=== PATIENT | female | born 1945 | race Caucasian/White ===

== ENCOUNTER → 2023-12-06 17:14 | Outpatient (REF) | payer MEDICARE, SELFPAY | LOC: HWWDC 17:14 | PROVIDERS: ATTENDING PHYSICIAN Obstetrics & Gynecology; FAMILY PHYSICIAN Internal Medicine | DX: Z12.31 Encounter for screening mammogram for malignant neoplasm of breast (principal) | CPT/HCPCS: 77063; 77067 ==

== ENCOUNTER 2024-04-23 14:23 | Outpatient (RCR) | payer MEDICARE, SELFPAY | END 2024-04-23 23:59 | disposition home or self-care (01) | LOC: RPT 14:23 | PROVIDERS: FAMILY PHYSICIAN Internal Medicine | DX: I89.0 Lymphedema, not elsewhere classified (principal); Z73.6 Limitation of activities due to disability | CPT/HCPCS: 97110; 97140; 97161 ==

== ENCOUNTER 2024-05-28 11:57 | Outpatient (RCR) | payer MEDICARE, SELFPAY | END 2024-05-28 23:59 | disposition home or self-care (01) | LOC: RPT 11:57 | PROVIDERS: FAMILY PHYSICIAN Internal Medicine | DX: I89.0 Lymphedema, not elsewhere classified (principal); Z73.6 Limitation of activities due to disability; C06.9 Malignant neoplasm of mouth, unspecified; M62.81 Muscle weakness (generalized); T86.821 Skin graft (allograft) (autograft) failure | CPT/HCPCS: 97110; 97140; 97164 ==

== ENCOUNTER 2024-06-19 13:05 | Outpatient (RCR) | payer MEDICARE, SELFPAY | END 2024-06-19 23:59 | disposition home or self-care (01) | LOC: RPT 13:05 | PROVIDERS: FAMILY PHYSICIAN Internal Medicine | DX: I89.0 Lymphedema, not elsewhere classified (principal); T86.821 Skin graft (allograft) (autograft) failure; C06.9 Malignant neoplasm of mouth, unspecified; M62.81 Muscle weakness (generalized); Z73.6 Limitation of activities due to disability | CPT/HCPCS: 97110; 97140 ==

== ENCOUNTER → 2024-07-13 13:27 | Outpatient (REF) | payer MEDICARE, SELFPAY | LOC: HWRAD 13:27 | PROVIDERS: ATTENDING PHYSICIAN Internal Medicine Endocrinology, Diabetes & Metabolism; FAMILY PHYSICIAN Internal Medicine | DX: Z85.850 Personal history of malignant neoplasm of thyroid (principal) | CPT/HCPCS: 76536 ==

== ENCOUNTER 2024-07-19 11:58 | Outpatient (RCR) | payer MEDICARE, SELFPAY | END 2024-07-19 23:59 | disposition home or self-care (01) | LOC: RPT 11:58 | PROVIDERS: FAMILY PHYSICIAN Internal Medicine | DX: I89.0 Lymphedema, not elsewhere classified (principal); T86.821 Skin graft (allograft) (autograft) failure; C06.9 Malignant neoplasm of mouth, unspecified; M62.81 Muscle weakness (generalized); Z73.6 Limitation of activities due to disability | CPT/HCPCS: 97110; 97140; 97535 ==

== ENCOUNTER → 2024-07-27 10:03 | Outpatient (REF) | payer MEDICARE, SELFPAY | LOC: RST 10:03 | PROVIDERS: ATTENDING PHYSICIAN Internal Medicine | DX: R13.10 Dysphagia, unspecified (principal) | CPT/HCPCS: 74230; 92611 ==

== ENCOUNTER 2024-08-29 11:01 | Outpatient (RCR) | payer OTHER, SELFPAY | END 2024-08-29 23:59 | disposition home or self-care (01) | LOC: RPT 11:01 | PROVIDERS: FAMILY PHYSICIAN Internal Medicine | DX: I89.0 Lymphedema, not elsewhere classified (principal); Z73.6 Limitation of activities due to disability | CPT/HCPCS: 92526; 92610; 97140; 97530 ==

== ENCOUNTER 2024-09-13 10:31 | Outpatient (RCR) | payer OTHER, SELFPAY | END 2024-09-13 13:15 | disposition home or self-care (01) | LOC: RPT 10:31 | PROVIDERS: FAMILY PHYSICIAN Internal Medicine | DX: I89.0 Lymphedema, not elsewhere classified (principal); T86.821 Skin graft (allograft) (autograft) failure; C06.9 Malignant neoplasm of mouth, unspecified; M62.81 Muscle weakness (generalized); Z73.6 Limitation of activities due to disability | CPT/HCPCS: 97140 ==

== ENCOUNTER → 2024-11-28 14:00 | Outpatient (REF) | payer OTHER, SELFPAY | LOC: HWRCS 14:00 | PROVIDERS: ATTENDING PHYSICIAN Internal Medicine Cardiovascular Disease; FAMILY PHYSICIAN Internal Medicine | DX: I35.1 Nonrheumatic aortic (valve) insufficiency (principal); I25.10 Atherosclerotic heart disease of native coronary artery without angina pectoris; M48.00 Spinal stenosis, site unspecified; R07.9 Chest pain, unspecified | CPT/HCPCS: 93306 ==

== ENCOUNTER → 2024-11-30 07:38 | Outpatient (REF) | payer OTHER, SELFPAY | LOC: HWRCS 07:38 | PROVIDERS: ATTENDING PHYSICIAN Internal Medicine Cardiovascular Disease; FAMILY PHYSICIAN Internal Medicine | DX: I25.10 Atherosclerotic heart disease of native coronary artery without angina pectoris (principal); I35.1 Nonrheumatic aortic (valve) insufficiency; R07.9 Chest pain, unspecified | CPT/HCPCS: 78452; 93017; A9500; J2785 ==

== ENCOUNTER → 2025-01-01 09:41 | Outpatient (REF) | payer OTHER, SELFPAY | LOC: HWWDC 09:41 | PROVIDERS: ATTENDING PHYSICIAN Obstetrics & Gynecology; FAMILY PHYSICIAN Internal Medicine | DX: Z12.31 Encounter for screening mammogram for malignant neoplasm of breast (principal) | CPT/HCPCS: 77063; 77067 ==

== ENCOUNTER → 2025-03-29 09:04 | Outpatient (REF) | payer OTHER, SELFPAY | LOC: RAD 09:04 | PROVIDERS: ATTENDING PHYSICIAN Otolaryngology; FAMILY PHYSICIAN Internal Medicine | DX: C03.1 Malignant neoplasm of lower gum (principal) | CPT/HCPCS: 70491; Q9967 ==

== ENCOUNTER → 2025-04-23 09:11 | Outpatient (REF) | payer OTHER, SELFPAY | LOC: RCS 09:11 | PROVIDERS: ATTENDING PHYSICIAN Obstetrics & Gynecology; FAMILY PHYSICIAN Internal Medicine | DX: R00.1 Bradycardia, unspecified (principal) | CPT/HCPCS: 93225; 93226 ==

== ENCOUNTER 2025-05-01 09:05 | Outpatient (RCR) | payer OTHER, SELFPAY ==
[2025-04-30] VITALS (9 sets, daily range): BP systolic 93–154; BP diastolic 46–92
[2025-04-30] MEDS: TYLENOL 650 MG PO (09:32)
[2025-04-30] MEDS: BENADRYL 25 MG PO (09:32)
[2025-04-30] MEDS: NSS 500 IV (09:34)
[2025-04-30] MEDS: GAMMAGARD 200 IV (09:34)
[2025-04-30] MEDS: GAMMAGARD 300 IV ×2 (11:23→12:42)
[2025-05-01] VITALS (11 sets, daily range): BP systolic 108–139; BP diastolic 47–53
[2025-05-01] MEDS: TYLENOL 650 MG PO (09:27)
[2025-05-01] MEDS: BENADRYL 25 MG PO (09:28)
[2025-05-01] MEDS: GAMMAGARD 300 IV ×2 (09:28→11:44)
[2025-05-01] MEDS: NSS 500 IV (09:28)
[2025-05-01] MEDS: GAMMAGARD 200 IV (13:03)
== END 2025-05-01 15:29 | disposition home or self-care (01) ==
LOC: OID 09:05
PROVIDERS: ATTENDING PHYSICIAN Nurse Practitioner Adult Health
DX: G70.00 Myasthenia gravis without (acute) exacerbation (principal); G25.81 Restless legs syndrome
CPT/HCPCS: 96361; 96365; 96366; J1569

== ENCOUNTER 2025-08-16 16:00 | Inpatient (IN) | payer OTHER, SELFPAY ==
[2025-08-16] VITALS (30 sets, daily range): BP systolic 113–167; BP diastolic 46–94; BMI 28.8; BMI 27.8
--- NOTE | 2025-08-16 13:01 | ED.GENMED ---
History of Present Illness
<Iman Guillen RAILROAD BAGG[employer] PORTER - Last Filed: 08/17/25 16:40>
General
Chief Complaint: Weakness
Source: patient and family (Daughter Virgen at bedside)
Exam Limitations: none
Time Seen by Provider: 08/16/25 13:00
Nursing documentation reviewed up to this point in time: agreed with
History of Present Illness
History of Present Illness:
79-year-old female with history of HTN, HLD, GERD, IBS, hypothyroid, oral cancer, myasthenia gravis presents for generalized weakness. She thinks it is a flare of her Myasthenia Gravis.
Diagnosed with MG 12/2023 after symptoms started 07/2023. On Pyridostigmine BR 60 mg TID which was last increased 04/2025 when she had a flare prior to her surgeries for oral cancer
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
02/2025: recurrent mouth CA midline lower gum
04/2025: removal of lesion, reconstructive surgery with skin graft from left forearm followed by 27 radiations treatments starting 07/03/25, last one was last week
She states this general weakness has been progressive all throughout her radiation therapy but much worse in the past 1-2 weeks. She has also had increasing shortness of breath with exertion
Had IVIG infusions on Mon and this week (2 and 4 days ago).
PCP Christiano FLOREZ, aware of her weakness and started her on Prednisone taper (30,30,20,20,10,10) and she had first 30 mg dose today.
She is followed by Dr. Ponce (was Dr. Jane who left), and mostly followed by Bettina Lopez NP neurology.
Past History
<Iman Guillen [employer] PORTER - Last Filed: 08/17/25 16:40>
Past History
ED Past Medical History: Cancer (Oral cancer), GERD, HTN, Hypercholesterolemia, Hypothyroidism, Other (Kidney stones) and Other (Myasthenia gravis)
ED Past Surgical History: Cholecystectomy, Gynecological, Orthopedic and Other (Left thyroid lobectomy)
Social History
Tobacco: Non-smoker
Alcohol: None
Personal: Single
Living: alone (Lives at [facility])
Review of Systems
<Iman Guillen, RAILRO[employer] PORTER - Last Filed: 08/17/25 16:40>
Review of Systems
Allergies reviewed?: Yes
All Other Systems: ROS reviewed and negative except as documented in HPI and ROS
EENT: Reports other (Due to recent oral cancer and radiation, needs pur�ed diet, has to have head raised at least 30 degrees due to aspiration risk)
Phy Exam
<Iman Guillen, [employer]IL[employer] PORTER - Last Filed: 08/17/25 16:40>
Physical Exam
Physical Exam:
GENERAL: No acute distress. A&Ox3.
CONSTITUTIONAL: Afebrile.
EYES: clear, conjunctivae normal
ENMT: limited ROM of jaw due to recent surgery, can speak coherently. Dry mouth with radiation sore on anterior tongue, lower face and neck reddened from radiation treatments. l
RESPIRATORY: Regular respirations, nonlabored, lungs clear.
CARDIOVASCULAR: Regular rate and rhythm, no murmurs, no rubs.
GI: Soft, nontender, normal BS
MUSCULOSKELETAL: Moves with ease. Well perfused. No edema.
SKIN: Warm, dry, pale
PSYCH: Normal mood and affect. Well kept, interactive and appropriate
NEUROLOGIC: Awake, alert and oriented. No focal neurological deficits
Course
<Iman Guillen, RAILRO[employer] PORTER - Last Filed: 08/17/25 16:40>
Orders/Labs/Results
Orders:
Orders
08/16/25 Breakfast
IDDSI 4 - Pureed
At Your Request: Full Participation
08/16/25 13:41
0.9% Sodium Chloride 1000 ml [Nss] 1,000 ml IV BOLUS
08/16/25 13:57
Basic Metabolic Panel Urgent
Complete Blood Count/With Diff Urgent
Free T3 Urgent
Comment: ADD ON
Free T4 Urgent
TSH Reflex To Free T4 Urgent
Comment: ADD ON
08/16/25 14:08
Add On- LAB Urgent
Tests Added?: T3 reflex T4
08/16/25 14:29
NEUROLOGY CONSULT Urgent
Consulting Provider: Higinio Jimenes
Was physician already notified: Yes
Reason for consult: general weakness, hx Myasthenia Gravis
08/16/25 15:26
Urinalysis Reflex To Culture Urgent
Date Specimen was Collected: 08/16/25
Time Specimen was Collected: 15:25
Urine Microscopic Reflex Cult Urgent
Urine Culture Urgent
QUINN Source: U
Specimen Description:
Date Specimen was Collected: 08/16/25
Time Specimen was Collected: 15:25
08/16/25 15:34
Admit/Transfer Patient As Directed
Co-Sign Provider:
Level of Care: Inpatient admission
Assign to:: ICU
Physician / Group: marilou
Diagnosis: Myasthenia Gravis exacerbation
Reason for Hospitalization: Myasthenia Gravis exacerbation
Expected length of stay greater than two midnights?: Yes
ELOS- Estimated Length of Stay in days: 3
I certify the patient meets the requirements for IP care: Yes
08/16/25 15:35
PRN Pain Medication Management As Directed
May give lesser potent ordered pain med per pt: Yes
preference::
Protocol:: Medication orders for pain may be administered in a
manner that supports deferring to patient preference
when the pt is:
- Requesting an ordered lesser potent pain medication.
Least to most potent pain medications are defined
as: acetaminophen < NSAID < tramadol < opioids
(morphine, oxycodone, hydromorphone).
- Requesting a lesser dose of the same medication IF
ORDERED.
- Requesting a less intrusive route of administration
if both routes are prescribed by the provider (PO <
IV).
08/16/25 15:36
Code Status As Directed
Resuscitation Status: Full Code
08/16/25 16:37
Acetaminophen [Tylenol] 650 mg PO Q4HPRN PRN
Bisacodyl [Dulcolax] 10 mg RECTAL [id number] PRN
Docusate W/Senna [Senokot-S] 1 tablet PO BIDPRN PRN
Polyethylene Glycol Powder [Miralax] 17 grams PO DAILYPRN PRN
Pyridostigmine [Mestinon] 60 mg PO TID
Pft Nif [RESP] Q4H
08/16/25 16:37
Librarian Assistant Consult Routine
Consulting Provider: Maite Wise
Was physician already notified: Yes
Activity As Directed
Activity Level: As Tolerated
Vital Signs As Directed
Frequency: Per unit guidelines
Ot Eval And Treat Routine
Pt Eval And Treat Routine
Activity Level: As Tolerated
DX Deep Vein Thrombosis Video Routine
08/16/25 18:00
Enoxaparin Sodium [Lovenox] 40 mg SC QPM
08/16/25 20:00
Vit C/Vit E/Lutein/Min/Tacoma-3 [Ocuvite Softgel] 1 cap PO BID
08/16/25 20:37
Pft Nif [RESP] Q4H
08/17/25 00:37
Pft Nif [RESP] Q4H
08/17/25 06:00
Levothyroxine [Synthroid] 112 mcg PO DAILY@0600
08/17/25 08:00
Lactobac/Bifidobac [Visbiome] 1 cap PO DAILY
Pantoprazole [Protonix] 40 mg PO DAILY
Abnormal Lab Results
08/16/25 08/16/25
13:57 15:26
WBC 3.8 L 10^3/uL
(4.8-10.8)
RBC 3.89 L 10^6/uL
(4.20-5.40)
Hgb 10.5 L g/dL
(12.0-16.0)
Hct 33.9 L %
(37.0-47.0)
MCHC 31.0 L g/dL
(33.0-37.0)
MPV 11.6 H fL
(7.4-10.4)
Absolute Lymphs (auto) 0.2 L 10^3/uL
(1.2-3.4)
Neutrophils % 91.4 H %
(42.2-75.2)
Lymphocytes % 4.9 L %
(20.5-51.1)
Chloride 111 H mmol/L
(98-107)
BUN 19 H mg/dl
(7-17)
Glucose 110 H mg/dl
(70-99)
TSH (Reflex) 0.09 L uIU/ml
(0.47-4.68)
Free T4 2.74 H ng/dl
(0.78-2.19)
Urine Ketones 3+ A
(Negative)
Ur Occult Blood Reflex 1+ A
(Negative)
Urine Bilirubin 1+ A
(Negative)
Leukocyte Esterase Rfl 1+ A
(Negative)
Urine RBC 7-10 A /HPF
(0-2)
Urine Bacteria (Reflex) Moderate A
(Negative)
Urine Albumin (Reflex) 2+ A
(Neg - Trace)
08/16/25 13:57
08/16/25 13:57
Vital Signs
Initial and Last Documented VS:
Initial Vital Signs
Temp Pulse Resp BP Pulse Ox
97.7 F 65 18 167/94 99
08/16/25 11:32 08/16/25 11:32 08/16/25 11:32 08/16/25 11:32 08/16/25 11:32
Last Documented Vital Signs
Temp Pulse Resp BP Pulse Ox
98 F 53 14 110/74 96
08/17/25 15:26 08/17/25 16:00 08/17/25 16:00 08/17/25 16:00 08/17/25 16:00
Commercial Print Salesman consulted with Physician
Commercial Print Salesman consulted with physician?: Yes
Name of Physician Consulted: Omid
<Mert Mitchell, DO - Last Filed: 08/16/25 14:16>
Orders/Labs/Results
Orders:
Orders
08/16/25 Breakfast
IDDSI 4 - Pureed
At Your Request: Full Participation
08/16/25 13:41
0.9% Sodium Chloride 1000 ml [Nss] 1,000 ml IV BOLUS
08/16/25 13:57
Basic Metabolic Panel Urgent
Complete Blood Count/With Diff Urgent
Free T3 Urgent
Comment: ADD ON
Free T4 Urgent
TSH Reflex To Free T4 Urgent
Comment: ADD ON
08/16/25 14:08
Add On- LAB Urgent
Tests Added?: T3 reflex T4
08/16/25 14:29
NEUROLOGY CONSULT Urgent
Consulting Provider: Higinio Jimenes
Was physician already notified: Yes
Reason for consult: general weakness, hx Myasthenia Gravis
08/16/25 15:26
Urinalysis Reflex To Culture Urgent
Date Specimen was Collected: 08/16/25
Time Specimen was Collected: 15:25
Urine Microscopic Reflex Cult Urgent
Urine Culture Urgent
QUINN Source: U
Specimen Description:
Date Specimen was Collected: 08/16/25
Time Specimen was Collected: 15:25
08/16/25 15:34
Admit/Transfer Patient As Directed
Co-Sign Provider:
Level of Care: Inpatient admission
Assign to:: ICU
Physician / Group: marilou
Diagnosis: Myasthenia Gravis exacerbation
Reason for Hospitalization: Myasthenia Gravis exacerbation
Expected length of stay greater than two midnights?: Yes
ELOS- Estimated Length of Stay in days: 3
I certify the patient meets the requirements for IP care: Yes
08/16/25 15:35
PRN Pain Medication Management As Directed
May give lesser potent ordered pain med per pt: Yes
preference::
Protocol:: Medication orders for pain may be administered in a
manner that supports deferring to patient preference
when the pt is:
- Requesting an ordered lesser potent pain medication.
Least to most potent pain medications are defined
as: acetaminophen < NSAID < tramadol < opioids
(morphine, oxycodone, hydromorphone).
- Requesting a lesser dose of the same medication IF
ORDERED.
- Requesting a less intrusive route of administration
if both routes are prescribed by the provider (PO <
IV).
08/16/25 15:36
Code Status As Directed
Resuscitation Status: Full Code
08/16/25 16:37
Acetaminophen [Tylenol] 650 mg PO Q4HPRN PRN
Bisacodyl [Dulcolax] 10 mg RECTAL [id number] PRN
Docusate W/Senna [Senokot-S] 1 tablet PO BIDPRN PRN
Polyethylene Glycol Powder [Miralax] 17 grams PO DAILYPRN PRN
Pyridostigmine [Mestinon] 60 mg PO TID
Pft Nif [RESP] Q4H
08/16/25 16:37
Librarian Assistant Consult Routine
Consulting Provider: Maite Wise
Was physician already notified: Yes
Activity As Directed
Activity Level: As Tolerated
Vital Signs As Directed
Frequency: Per unit guidelines
Ot Eval And Treat Routine
Pt Eval And Treat Routine
Activity Level: As Tolerated
DX Deep Vein Thrombosis Video Routine
08/16/25 18:00
Enoxaparin Sodium [Lovenox] 40 mg SC QPM
08/16/25 20:00
Vit C/Vit E/Lutein/Min/Tacoma-3 [Ocuvite Softgel] 1 cap PO BID
08/16/25 20:37
Pft Nif [RESP] Q4H
08/17/25 00:37
Pft Nif [RESP] Q4H
08/17/25 06:00
Levothyroxine [Synthroid] 112 mcg PO DAILY@0600
08/17/25 08:00
Lactobac/Bifidobac [Visbiome] 1 cap PO DAILY
Pantoprazole [Protonix] 40 mg PO DAILY
Abnormal Lab Results
08/16/25 08/16/25
13:57 15:26
WBC 3.8 L 10^3/uL
(4.8-10.8)
RBC 3.89 L 10^6/uL
(4.20-5.40)
Hgb 10.5 L g/dL
(12.0-16.0)
Hct 33.9 L %
(37.0-47.0)
MCHC 31.0 L g/dL
(33.0-37.0)
MPV 11.6 H fL
(7.4-10.4)
Absolute Lymphs (auto) 0.2 L 10^3/uL
(1.2-3.4)
Neutrophils % 91.4 H %
(42.2-75.2)
Lymphocytes % 4.9 L %
(20.5-51.1)
Chloride 111 H mmol/L
(98-107)
BUN 19 H mg/dl
(7-17)
Glucose 110 H mg/dl
(70-99)
TSH (Reflex) 0.09 L uIU/ml
(0.47-4.68)
Free T4 2.74 H ng/dl
(0.78-2.19)
Urine Ketones 3+ A
(Negative)
Ur Occult Blood Reflex 1+ A
(Negative)
Urine Bilirubin 1+ A
(Negative)
Leukocyte Esterase Rfl 1+ A
(Negative)
Urine RBC 7-10 A /HPF
(0-2)
Urine Bacteria (Reflex) Moderate A
(Negative)
Urine Albumin (Reflex) 2+ A
(Neg - Trace)
08/16/25 13:57
08/16/25 13:57
Vital Signs
Initial and Last Documented VS:
Initial Vital Signs
Temp Pulse Resp BP Pulse Ox
97.7 F 65 18 167/94 99
08/16/25 11:32 08/16/25 11:32 08/16/25 11:32 08/16/25 11:32 08/16/25 11:32
Last Documented Vital Signs
Temp Pulse Resp BP Pulse Ox
98 F 53 14 110/74 96
08/17/25 15:26 08/17/25 16:00 08/17/25 16:00 08/17/25 16:00 08/17/25 16:00
<Iman Guillen, RAILROAD BAGGAGE PORTER - Last Filed: 08/17/25 16:40>
MDM/Problems Addressed
MDM/Problems Addressed:
79-year-old female with history of HTN, HLD, GERD, IBS, hypothyroid, oral cancer, myasthenia gravis presents for generalized weakness. She thinks it is a flare of her Myasthenia Gravis.
Diagnosed with MG 12/2023 after symptoms started 07/2023. On Pyridostigmine BR 60 mg TID which was last increased 04/2025 when she had a flare prior to her surgeries for oral cancer
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
02/2025: recurrent mouth CA midline lower gum
04/2025: removal of lesion, reconstructive surgery with skin graft from left forearm followed by 27 radiations treatments starting 07/03/25, last one was last week
She states this general weakness has been progressive all throughout her radiation therapy but much worse in the past 1-2 weeks. She has also had increasing shortness of breath with exertion
Had IVIG infusions on Mon and Tu this week (2 and 4 days ago).
PCP Christiano FLOREZ, aware of her weakness and started her on Prednisone taper (30,30,20,20,10,10) and she had first 30 mg dose today.
She is followed by Dr. Ponce (was Dr. Jane who left), and mostly followed by Bettina Lopez NP neurology.
CBC: Mild anemia otherwise no clinically significant abnormality
CMP: No clinically significant abnormality
2:45 PM:
Neurology in, wants patient mid to ICU
Discussed transfer to [place] but pt refusing.
Ordered Resp NIF
Hospitalist and notified of admission
<Iman Guillen RAILROAD BAGGAGE PORTER - Last Filed: 08/17/25 16:40>
*Pulse Oximetry
SaO2: 99
Patient hypoxic: no
*Critical Care Note
Total Time (30-74mins, 75-104mins- exclusive of procedures): Not Applicable
ED Attending Note
<Iman Guillen RAILROAD BAGGAGE PORTER - Last Filed: 08/17/25 16:40>
-
Portions of this chart may have been created with voice recognition software.� Occasional wrong word or��sound alike� substitutions may have occurred due to the inherent limitations of voice recognition software.
<Mert Mitchell DO - Last Filed: 08/16/25 14:16>
ED Attending Note
Patient seen and examined by attending physician: Yes
I performed the substantive portion of visit, reviewed & personally made and approve the management plan that is documented in note by myself or JOHN.: Yes
Discharge Plan
Departure
Patient Disposition: Admit
Date of Disposition: 08/16/25
Time of Disposition: 15:00
Admit to: ICU
Presentation/result/management discussed w/ accepting MD/DO: Hospitalist
Condition: Fair
Discharge Problem:
General weakness, Myasthenia gravis, History of cancer of mouth
Interventions
Interventions:
*Risk Screen - Suicide Last Done: 08/16/25 11:38
*General Assessment Last Done: 08/16/25 11:38
*Neglect/Abuse Screening Last Done: 08/16/25 11:38
*ED- Fall Risk Assessment Last Done: 08/16/25 16:25
*ED COVID-19 Vaccine History Last Done: 08/16/25 11:38
*ED Influenza Vaccine History Last Done: 08/16/25 11:38
*Nursing Disposition Last Done: 08/16/25 16:28
ED- Cardiac Assessment Last Done: 08/16/25 14:13
ED- Neurological Assessment Last Done: 08/16/25 14:13
ED- Pulmonary Assessment Last Done: 08/16/25 14:13
Discharge Date and Time
Discharge Date/Time: 08/16/25 16:28
[2025-08-16 14:10] LABS: Hematocrit 33.9 % (37.0-47.0); Hemoglobin 10.5 g/dL (12.0-16.0); Mean Corp Hgb Conc. 31.0 g/dL (33.0-37.0); Mean Corpuscular Volume 87.1 fL (81.0-99.0); Nucleated Red Blood Cells % 0 %; Platelet Count 231 10^3/uL (130-400); Red Cell Dist. Width 14.5 % (11.5-14.5)
[2025-08-16 14:43] LABS: Blood Urea Nitrogen 19 mg/dl (7-17); Calcium 9.3 mg/dl (8.4-10.2); Carbon Dioxide 24 mmol/L (22-30); Chloride 111 mmol/L (98-107); Estimated Creatinine Clearance 57 ml/min; Glucose 110 mg/dl (70-99); Sodium 141 mmol/L (135-145); eGFR > 60.00
--- NOTE | 2025-08-16 15:04 | HPS.HSE ---
Addendum entered and electronically signed by Fadi Elkins MD 08/16/25 16:03:
This is an addendum to H&P written by Erika Alvarado on 08/16/2025. �Patient seen and examined independently with SUPERVISOR [employer].
79-year-old female past medical history of myasthenia gravis on IVIG started this week and chronic pyridostigmine, hypertension, hyperlipidemia, IBS, hypothyroidism, recurrent squamous cell oral cancer status post radiation and priormandibulectomy
with bone graft from right fibula and reconstructive surgery, presenting with extreme lower extremity weakness and inability to ambulate for 1 week and shortness of breath with exertion.
Tongue is sore from radiation. On pureed diet.
Started on prednisone yesterday.
Vital signs unremarkable. �Labs unremarkable apart from leukopenia of 3.8, anemia of 10.5.
Patient with myasthenia gravis flare already receiving IVIG earlier this week. �On pyridostigmine and prednisone. �Neurology consulted. �Monitoring ICU. �Check NIF every 4 hours.
Original Note:
Family Physician
-
Family Physician: Rodney Moreno
Chief Complaint
-
generalized weakness
History of Present Illness
79-year-old female with history of HTN, HLD, GERD, IBS, hypothyroid, oral cancer, myasthenia gravis presents for generalized weakness. progressively worsening weakness for past one week. she is not able to walk without help. she is also sob with
exertion. denied cough, fever, chills, chest pain. denied SOLIZ, dizzy or syncope.denied abdominal pain,n,v,d. denied dysuria or hematuria. she Had IVIG infusions on Tue and this week. she was also started on steroids, she took her first dose
today. patient also stated poor appetite as her tongues are sore from recent radiation. she was evaluated by oncology on , who stated no active infection.
PFT NIF was performed in the ER. patient was evaluated by neurology. admitting for further management.
Medical History
Past Medical History
Past Medical History: Reports Other
Additional Past Medical History:
Obstructive sleep apnea, hypercholesterolemia, hyperlipidemia, coronary artery disease, hypothyroidism, GERD, hypothyroidism, myasthenia gravis, hypertension, aortic regurgitation, oral cavity carcinoma, Osteoarthritis, benign breast mass, irritable
bowel disease, squamous cell carcinoma, left eye macular degeneration
Past Surgical History: Reports Other
Additional Past Surgical History:
Hysterectomy, cholecystectomy, thyroidectomy, total knee replacement, oral surgery, left segmental mandibulectomy
Social History
Tobacco: Non-smoker
Alcohol: None
Drug: None
Living: With Family
Family History
Family History: Not pertinent
Allergies / Home Medications
Allergies reflects when Allergies were last updated in [facility].
Home Medications with original date entered in [facility]
Allergy/Medication List:
Allergies
Allergy/AdvReac Type Severity Reaction Status Date / Time
levofloxacin (From Levaquin) Allergy vaginal Verified 08/16/25 11:38
infection
succinylcholine Allergy Unknown Verified 08/16/25 11:38
Home Medications
atenolol 25 mg tablet 25 mg PO DAILY 06/23/09
vakzftlnlsge-zywiejnt-lpouoj tablet (Centrum Silver tablet) 1 tab PO DAILY 06/23/09
acetaminophen 650 mg tablet,extended release (Tylenol Arthritis) 1,300 mg PO PRN PRN pain 06/24/09
Nexium 1 tab PO DAILY 04/30/25
hydrochlorothiazide 1 tab PO DAILY 04/30/25
levothyroxine 112 mcg tablet (Synthroid) 112 mcg PO DAILY 04/30/25
pravastatin 1 tab PO DAILY 04/30/25
pyridostigmine bromide 60 mg tablet (Mestinon) 60 mg PO TID 04/30/25
vitamins A,C,J-ubnl-qflrmu 2,148 mcg-113 mg-45 mg-17.4 mg tablet (PreserVision AREDS) 1 tab PO BID 04/30/25
Review of Systems
-
Constitutional: Reports No Symptoms
EENT: Reports No Symptoms
Respiratory: Reports No Symptoms
Cardiac: Reports No Symptoms
Abdomen/GI: Reports No Symptoms
: Reports No Symptoms
Musculoskeletal: Reports No Symptoms
Skin: Reports No Symptoms
Neurological: Reports Weakness
Endocrine: Reports No Symptoms
Hematologic/Lymphatic: Reports No Symptoms
Psych: Reports No Symptoms
Physical Exam
Vital Signs
Vital Signs
Temp Pulse Resp BP Pulse Ox
97.7 F 67 17 113/59 94
08/16/25 11:32 08/16/25 14:00 08/16/25 14:00 08/16/25 14:00 08/16/25 14:00
Physical Exam
General: Well Developed, Well Nourished and No Apparent Distress
HEENT: NormoCephalic, Moist mucous membranes and Atraumatic
Respiratory: Clear
Cardiac: S1/S2 and Regular Rhythm; No Murmur or Rub
GI: Soft, Non Tender, Non Distended and Normal Bowel Sounds; No Organomegaly
Rectal: Deferred by Provider
Musculoskeletal: No Clubbing, No Cyanosis and No Edema
Skin: Rash and Other (tongue soreness)
Neuro: Nonfocal/grossly intact
Laboratory Results
-
08/16/25 13:57
08/16/25 13:57
Laboratory Results
Total Bilirubin Cancelled 08/16/25 13:57
AST Cancelled 08/16/25 13:57
ALT Cancelled 08/16/25 13:57
Alkaline Phosphatase Cancelled 08/16/25 13:57
Data Reviewed
-
Lab Data: Labs Reviewed by me
Impression/Plan
-
# extreme weakness/short of breath concern of for exacerbation of myasthenia gravis
- On NIF every 4 hours
- neurology following patient
-Mestinon continued
- PT/OT consulted
#Leukopenia/anemia likely from recent radiation
-ctm
#hxt of squamous cell oral cancer
#recurrent mouth CA midline lower gum, removal of lesion, reconstructive surgery with skin graft from left forearm
-s/p L mandibulectomy with bone graft from R fibula
-follows [facility] oncology
#tongue sore/lesions
-ctm
#GERD
-PPI continued
#hypothyroidism
-levothyroxine continued
#DVT prophylaxis
-Lovenox
#CODE status
-full code
[2025-08-16] MEDS: NSS 1000 IV (15:08)
[2025-08-16 15:34] LABS: Free T3 3.20 pg/ml (2.77-5.27)
--- NOTE | 2025-08-16 16:04 | CON.NEURO4 ---
Addendum entered and electronically signed by Higinio Jimenes MD 08/16/25 20:23:
This addendum is for the patient Debi Chiang, who is a 79 years old female and her date of is 1945.
I have seen and examined the patient on 08/16/2025. I have discussed the patient's assessment and the management plan with nurse practitioner Bettina Lopez. I agree with the assessment and plan of the nurse practitioner Bettina Lopez. Given below
is my assessment and plan.
The patient is 79 years old female with a past medical history of myasthenia gravis, hypertension, hyperlipidemia, oral cancer status post surgery and now with ongoing radiation therapy, who presented to the hospital with increased weakness. The
patient noted shortness of breath. The patient follows up with neurology for myasthenia gravis and has recently received IVIG treatment about 4 days ago. The patient says that the IVIG treatment helped her somewhat but she is still has been
progressively getting weaker. Is also on Mestinon 60 mg 3 times daily. The patient was also started on prednisone 30 mg by her PCP and she took the first dose before coming to the ER.
On neurologic examination, the patient is alert and oriented x 3, speech is clear, the cranial nerves II to XII are grossly intact, the sensations are grossly intact bilaterally and her motor strength is about 4/55 bilaterally in the upper and lower
extremities.
The plan is to admit the patient to the hospital in ICU and follow NIF and vital capacity every 6 hours. The plan is to continue with Mestinon and prednisone. IVIG treatment has been ordered for today. At this time the patient is able to maintain
her airway.
Discussed with Dr. Wise.
Will follow.
Original Note:
Consultation - Neurology 4
-
CONSULTING PHYSICIAN: Dr. Higinio Jimenes
REFERRING PHYSICIAN: ABEL Edward
DICTATED BY: ABEL West
DATE/TIME OF REQUEST: 08/16/2025
DATE/TIME OF CONSULTATION: 08/16/2025
Reason for Consultation:
History of Present Illness:
This is a 79-year-old female patient with past medical history of myasthenia, hypertension, hyperlipidemia, GERD, IBS and oral cancer status postsurgery x 2 now iwth ongoing radiation at [facility] who presented to the hospital this afternoon with
increased weakness. She reports today she was unable to walk without assistance. She noted shortness of breath with minimal exertion. She had difficulty getting dressed. On 05/06/2025 she had anterior floor of mouth resection marginal
mandibulectomy. She has now been receiving radiation, received 27 treatments thus far. First mandible surgery was 07/2023. Initial dx of MG was December 2023. She has followed up with neurology for myasthenia and has recently been receiving IVIG
given weakness in setting of second surgery and radiation, last doses this past Tuesday and Tuesday. She has found that this has been somewhat helpful but she still has been progressively getting weaker. She has also been maintained on Mestinon 60
mg TID. She did see her PCP for follow up and they started her on prednisone 30 mg for increased weakness and she took her first dose of that before coming to the ER. She does admit that she is not able to eat or drink well since surgery. Recently
her intake has been worse with mouth sores and increased pain d/t radiation.
Past History-
ED Past Medical History: Cancer (Oral cancer), GERD, HTN, Hypercholesterolemia, Hypothyroidism, Other (Kidney stones) and Other (Myasthenia gravis)
ED Past Surgical History: Cholecystectomy, Gynecological, Orthopedic and Other (Left thyroid lobectomy), L mandibulectomy with bone graft from R fibula 07/2023, anterior floor of mouth resection marginal mandibulectomy, left forearm skin graft 04/2025
Social History-
Tobacco: Non-smoker
Alcohol: None
Personal: Single
Living: alone (Lives at [facility])
Allergies: see below
Home Medications: see below
Review of Symptoms:
Patient denies any fever, headache, chest pain, shortness of breath at rest, or symptoms. She has had mouth pain and difficulty eating and drinking.
�
Vital Signs: see below
Physical Exam:
The patient is afebrile, heart sounds S1 and S2 are regular, and chest is clear to auscultation bilaterally.
Neurologic Examination:
The patient is awake, alert and oriented x 3. She is able to follow commands and answer questions appropriately. There is no aphasia moderate dysarthria. On cranial nerve assessment, pupils are 3 mm bilateral, round and reactive to light and
accommodation. Visual lindquist are full. Extraocular movements are intact. Facial sensations are intact, surgical changes to mouth causing asymmetry. Hearing is intact bilaterally to normal conversation volume. Tongue palate and uvula are midline.
Sternocleidomastoid strengths are full bilaterally. Motor strengths are 5/5 bilateral upper and lower extremities on medical research [place] scale. There is no drift or involuntary movement noted. Sensations of light touch intact. There was no
extinction noted on double simultaneous stimulation. Coordination is intact by finger to nose bilaterally.
Lab Results: see below
Neuro Imaging: none to review
Impression:
DEBI CHIANG is a 79 year old F who has presented to the hospital with generalized weakness in setting of MG and recent surgery for mouth cancer followed by radiation. Weakness is likely multifactorial, but now likely is in MG flare.
Recommendations:
-should admit to ICU given risk of decline
-Give one time dose of IVIG 45 gm as ordered
-continue Mestinon 60 mg TID, has not been able to tolerate higher doses in the past d/t diarrhea
-continue prednisone 30mg daily for now
-encourage PO intake
-eventual PT/OT and speech evaluations
-continue NIF and vital capacity testing Q4h
-discussed possible need for transfer
Discussed patient care with neurologist Dr. Jimenes, emergency room staff ABEL Edward and Dr. Mitchell, patient and daughter
Vital Signs / Labs
-
Vital Signs and Labs:
Temp Pulse Resp BP Pulse Ox
97.7 F 65 15 145/68 96
08/16/25 11:32 08/16/25 15:00 08/16/25 15:00 08/16/25 15:00 08/16/25 15:00
08/16/25 13:57
08/16/25 13:57
08/16/25
13:57
WBC 3.8 L
RBC 3.89 L
Hgb 10.5 L
Hct 33.9 L
MCHC 31.0 L
MPV 11.6 H
Absolute Lymphs (auto) 0.2 L
Neutrophils % 91.4 H
Lymphocytes % 4.9 L
Chloride 111 H
BUN 19 H
Glucose 110 H
TSH (Reflex) 0.09 L
Medication and Allergies
Home Medications
Home Medications
�Medication �Instructions �Recorded
ktouohrvhvos-nxxnjveu-parxts 1 tab PO DAILY 06/23/09
tablet (Centrum Silver tablet)
levothyroxine 112 mcg tablet 112 mcg PO DAILY 04/30/25
(Synthroid)
pyridostigmine bromide 60 mg 60 mg PO TID 04/30/25
tablet (Mestinon)
vitamins A,C,K-aszz-mvrgav 2,148 1 tab PO BID 04/30/25
mcg-113 mg-45 mg-17.4 mg tablet
(PreserVision AREDS)
esomeprazole magnesium 20 mg 20 mg PO DAILY 08/16/25
capsule,delayed release (Nexium)
immune glob,gamma (IgG) 10 1 ml IV MONTHLY MG 08/16/25
%-gly-IgA over 50 mcg/mL injection
solution (Gammagard Liquid)
lactobacillus combination no.4 3 3,000 mmu cells PO DAILY 08/16/25
billion cell capsule (Probiotic)
lorazepam 0.5 mg tablet 0.5 mg PO DAILYPRN PRN prior to 08/16/25
radiation
prednisone 10 mg tablet 30 mg PO .TAPER 08/16/25
Allergies
Allergies
Allergy/AdvReac Type Severity Reaction Status Date / Time
levofloxacin (From Levaquin) Allergy vaginal Verified 08/16/25 11:38
infection
succinylcholine Allergy Unknown Verified 08/16/25 11:38
--- NOTE | 2025-08-16 16:04 | CON.INTV ---
Consultation
Consultation Request
Date/Time Consultation Requested: 08/16/2025
Date/Time Consultation Performed: 08/16/2025
Medical History
-
Chief Complaint: Weakness
History of Present Illness:
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 She follows up with [facility] and currently actively receiving radiation treatment.
Patient reports that over the last few days he has been having increasing weakness and has not been able to walk without assistance. She carries a known diagnosis of myasthenia gravis and chronically is on Mestinon. In view of increased weakness
she was started on IVIG and she has received 2 doses as outpatient, last dose was 3 days ago. In addition she was recently started on prednisone but in view of increasing symptoms she presented to the emergency room. In the emergency room she is
hemodynamically stable, protecting airways well. No evidence of drooling, respiratory compromise. Patient has a strong cough. She was evaluated by neurology service and is currently being admitted to the ICU for close monitoring of her
respiratory status. Sniff testing was attempted but patient not able to make a tight seal around the device. Activities Therapist consultation was requested for further input.
Past Medical History
Past Medical History: Reports Other
Additional Past Medical History:
Obstructive sleep apnea, hypercholesterolemia, hyperlipidemia, coronary artery disease, hypothyroidism, GERD, hypothyroidism, myasthenia gravis, hypertension, aortic regurgitation, oral cavity carcinoma, Osteoarthritis, benign breast mass, irritable
bowel disease, squamous cell carcinoma, left eye macular degeneration
Past Surgical History: Reports Other
Additional Past Surgical History:
Hysterectomy, cholecystectomy, thyroidectomy, total knee replacement, oral surgery, left segmental mandibulectomy
Social History
Tobacco: Non-smoker
Alcohol: None
Drug: None
Living: With Family
Family History
Family History: Not pertinent
Allergies / Home Medications
Allergies / Home Medications
Allergies
Allergy/AdvReac Type Severity Reaction Status Date / Time
levofloxacin (From Levaquin) Allergy vaginal Verified 08/16/25 11:38
infection
succinylcholine Allergy Unknown Verified 08/16/25 11:38
Home Medications
�Medication �Instructions �Recorded �Confirmed �Last Taken �Type
rehkoljmtiea-onohgljl-mfyugr 1 tab PO DAILY 06/23/09 08/16/25 05/01/25 History
tablet (Centrum Silver tablet)
levothyroxine 112 mcg tablet 112 mcg PO DAILY 04/30/25 08/16/25 08/16/25 History
(Synthroid)
pyridostigmine bromide 60 mg 60 mg PO TID 04/30/25 08/16/25 08/16/25 History
tablet (Mestinon)
vitamins A,C,K-vloi-uqrhcq 2,148 1 tab PO BID 04/30/25 08/16/25 05/01/25 History
mcg-113 mg-45 mg-17.4 mg tablet
(PreserVision AREDS)
esomeprazole magnesium 20 mg 20 mg PO DAILY 08/16/25 08/16/25 Unknown History
capsule,delayed release (Nexium)
immune glob,gamma (IgG) 10 1 ml IV MONTHLY MG 08/16/25 08/16/25 08/13/25 History
%-gly-IgA over 50 mcg/mL injection
solution (Gammagard Liquid)
lactobacillus combination no.4 3 3,000 mmu cells PO DAILY 08/16/25 08/16/25 Unknown History
billion cell capsule (Probiotic)
lorazepam 0.5 mg tablet 0.5 mg PO DAILYPRN PRN prior to 08/16/25 08/16/25 Unknown History
radiation
prednisone 10 mg tablet 30 mg PO .TAPER 08/16/25 08/16/25 08/16/25 History
Review of Systems
-
Hematologic/Lymphatic: Other (All 14 systems reviewed and negative except as stated above in the history of present illness.)
Vitals / Labs / Diagnostic Testing
Vital Signs
Temp Pulse Resp BP Pulse Ox
97.7 F 65 15 145/68 96
08/16/25 11:32 08/16/25 15:00 08/16/25 15:00 08/16/25 15:00 08/16/25 15:00
Lab Data
08/16/25 13:57
08/16/25 13:57
Diagnostic Testing:
Physical Exam
-
HEENT: Other (Radiation related skin changes noted, partial mouth opening. No stridor on exam. )
Cardiovascular: S1/S2
Respiratory: Clear
GI: Non Distended
Neurology: Alert
Skin: Warm
General: Comfortable
Assessment
-
#1. Myasthenia gravis with worsening weakness
- Patient chronically has been on pyridostigmine and recently started on prednisone in addition to IVIG infusion
- Most recent IVIG infusion was 3 days prior to admission. Additional IVIg ordered. Continue Prednisone 30 mg PO daily along with Mestinon. Neurology service on case.
- Patient at risk of respiratory failure. Reviewed ED records, patient declined transfer to tertiary facility like [facility]
- Monitor closely in the ICU, NIF testing attempted but patient unable to make oral seal
- With prior surgery for oral cancer as well as neck radiation, patient has a high risk airway in the event that an intubation is needed. Updated daughter at bedside regarding risk of tracheostomy
- Check VBG to evaluate for any CO2 retention, serial VBG in AM
- Low threshold to initiate noninvasive positive pressure ventilation. Currently seems to have strong cough and stable from respiratory stand point. No drooling or stridor noted.
#2/ H/o MUKUL
- Patient not using any CPAP or BIPAP since 5 years now, and does not want to use PAP therapy
Other medical diagnoses:
- Hypertension, hyperlipidemia
- Hypothyroidism
- Chronic GERD
- History of squamous cell carcinoma, oral cavity, status post surgery, reconstruction and radiation. Magic mouth wash for oral discomfort
Critical Care time [65] mins -- The patient is admitted for acute critical illness for the treatment of vital organ failure and/or prevention of further life-threatening conditions. Total care includes time spent in review of history, physical exam,
medications, hemodynamic/ventilator parameters, laboratory data, imaging and discussion with house staff, pharmacy, respiratory therapy, scarfer, and nursing.
Data:
PET-CT 03/2025: 1. RECURRENT SQUAMOUS CELL CARCINOMA in the MIDLINE ANTERIOR FLOOR of the MOUTH).
2. No evidence for FDG avid metastatic disease.
3. Previous left mandibular resection, mandibular reconstruction, and left-sided neck dissection.
CT Neck 02/2025: 1. No CT evidence for enhancing soft tissue mass to suggest recurrent cancer. Mild edema along the anterior margin of the mandible. Partial left mandibular resection and reconstruction with surrounding soft tissue resection in the
left side of the floor of the mouth and left gripper installer space since the prior exam performed 07/18/2023.
2. No CT evidence for metastatic cervical lymphadenopathy.
3. Previous total thyroidectomy.
4. 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
5. 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
6. Mild pulmonary arterial hypertension.
Lexiscan 10/2024: Lexiscan nuclear stress test. No chest pain. No EKG changes specific for ischemia.
No perfusion evidence of ischemia or infarction.
Systolic function is normal. The ejection fraction is 56%.
Stress Risk is moderate due to use of pharmacologic agent.
ECHO 10/2024: Normal biventricular size and systolic function without regional wall motion
abnormality. Estimated LVEF 65-70%.
Mild aortic regurgitation.
[2025-08-16 16:15] LABS: Urine Character Slightly Cloudy (Clear)
[2025-08-16 16:50] LABS: Glucose - Point of Care 131 mg/dl (70-99)
[2025-08-16 17:09] LABS: Venous Blood Gas B.E. -1.6 mmol/L (-4 to +4); Venous Blood Gas O2 Sat % 99.2 %
[2025-08-16 17:14] LABS: Urine Urothelial Cell 0-2 /LPF (FEW)
[2025-08-16 17:19] LABS: INR 1.03; PT 13.8 Sec (11.4-14.6)
[2025-08-16 17:20] LABS: APTT 28.3 Sec (23.4-35.0)
[2025-08-16 17:21] LABS: Blood Urea Nitrogen 18 mg/dl (7-17); Calcium 8.7 mg/dl (8.4-10.2); Carbon Dioxide 22 mmol/L (22-30); Chloride 115 mmol/L (98-107); Estimated Creatinine Clearance 56 ml/min; Glucose 117 mg/dl (70-99); Potassium 3.5 mmol/L (3.5-5.1); Sodium 141 mmol/L (135-145); eGFR > 60.00
--- NOTE | 2025-08-16 17:21 | RESPNOTE ---
NIF/VC attempted multiple times with patient,difficult to get seal on mouth due to radiation treatments. Multiple attempts made with different mouth piece and techniques. Best efforts recording.
[2025-08-16] MEDS: GAMMAGARD 50 IV (17:33)
[2025-08-16] MEDS: LOVENOX 40 MG SC (17:57)
[2025-08-16] MEDS: MAGIC OR MIRACLE MOUTHWASH 10 ML PO (18:22)
--- NOTE | 2025-08-16 18:25 | PTCARENOTE ---
Rec'd patient from the ED around 1630. Patient alert and oriented. Speech garbled from swelling. Per pt, worse than baseline. Neck red in appearance. MAEx4. Generalized weakness. Tolerated sitting at side of bed for about 10-15 minutes. SB/NSR with
BBB, rate in the 50-60's. EKG obtained. Pulse ox 96-97% on RA. Lung sounds cta. Patient not able to tolerate laying flat; SOB and unable to manage secretions. CXR completed per protocol. +BS. Assisted in ordering pureed dinner. IVIG initiated. VSS.
Daughter at bedside.
[2025-08-16] MEDS: GAMMAGARD 200 IV ×2 (19:01→21:05)
[2025-08-16 19:22] LABS: Magnesium 1.5 mg/dl (1.6-2.3)
--- NOTE | 2025-08-16 20:28 | PTCARENOTE ---
Assumed care of pt at 1900. Pt is A/O x4, pleasant and cooperative with care. Slurred speech noted, secondary to mouth sores, increased oral secretions, and swelling of oral mucosa. Maintaining SpO2 95% on RA. SR 60s-70s on monitor. Currently
receiving IVIG infusion. Assessment as documented in nursing shift assessment flowsheet.
[2025-08-16] MEDS: MESTINON 60 MG PO (20:57)
--- NOTE | 2025-08-16 21:40 | PTCARENOTE ---
Unable to perform oral care on patient due to pain and swelling from mouth sores--pt unable to tolerate. Pt using Magic Mouthwash PRN.
[2025-08-16] MEDS: MAGNESIUM SULFATE 50 IV (21:51)
[2025-08-16] MEDS: KCL 270 MEQ IV (21:52)
[2025-08-17] VITALS (24 sets, daily range): BP systolic 102–143; BP diastolic 50–87; BMI 27.9
--- NOTE | 2025-08-17 00:21 | PTCARENOTE ---
Midnight assessment unchanged. Pt OOB to chair from about 2100 to midnight. Maintaining SpO2 at around 94-95% on RA, still with increased oral secretions and difficulty bringing them up at times due to pain. Offered pt Magic Mouthwash at around 2330
since she said she takes it before bed, but she declined. SR/SB on monitor 50s-60s. CHG cloth bath done and linens/gown changed prior to getting back in bed. Mag and K+ repleted this evening with riders.
[2025-08-17] MEDS: TORADOL 30 MG IV (02:26)
--- NOTE | 2025-08-17 03:09 | PTCARENOTE ---
Pt has had trouble managing her oral secretions throughout the night, is constantly attempting to cough up mucous but her cough is very weak. At around 0230 pt asked for a yankauer to try to suction some of the secretions--she previously did not
want to do this because of the pain in her mouth. Suctioning with the yankauer was not very successful due to swelling in the oral cavity, attempted suctioning with 14Fr suction catheter but pt began choking on her secretions and gasping for
breaths, became cyanotic and was writhing around the bed visibly panicked. SpO2 dropped into the 70s, pt became tachycardic up to 140s. ICU DOCUMENT RESTORER Gary Rand and multiple RNs came into room to assist, jaw thrust maneuver done by ICU DOCUMENT RESTORER, ambu bag used
to give patient breaths and attempted to suction with yankauer as well--pt's mouth bleeding afterwards. Anesthesia paged overhead STAT to bedside. Pt eventually recovered without needing intubation, sats in mid to high 90s and was able to breath and
talk, was having a lot of ectopy and noted to be in bigeminy for a few minutes. EKG done but did not capture this rhythm change. Pt placed on 2LNC, now 98%, SR 70s on monitor. Saline spray ordered in an attempt to loosen pt's secretions. Pt states
she is exhausted and is rarely able to sleep because she chokes on her secretions at home while trying to sleep.
--- NOTE | 2025-08-17 03:41 | W.PN.UPDATE ---
Update Note
Progress Note Update
08/17/25
Approximately 0230 Patient became acutely hypoxemic and struggling to be able to take a breath. Patient was visibly choking on mucus, turning purple, desaturating to 70s%, and restless. Heart rate slowed 50-60s and became irregular, bigeminy.
Attempted suctioning but was difficult due to patient oral surgical history/reconstruction vs worsening of Myasthenia Gravis weakness. Anesthesia was STAT paged overhead. Meanwhile, a jaw thrust was attempted with deep suctioning, the mucus plug
was successfully removed. Patient was bagged with ambu bag for supportive breaths until saturations returned to 100%. Heart rate continued with bi-geminy but that resolved after the patient settled. Likely vasovagal secondary to mucus plug. Will
trial use of ocean nasal spray to thin mucus. Discussed case with anesthesia, all agreed the episode had resolved and no need to intubate saturations returned to 97-100% and patient was visible comfortable.
[2025-08-17 04:16] LABS: Venous Blood Gas B.E. -0.2 mmol/L (-4 to +4); Venous Blood Gas O2 Sat % 99.7 %
--- NOTE | 2025-08-17 04:24 | PTCARENOTE ---
Pt remains on 2LNC with SpO2 99%. SR/SB on monitor, going down as low as mid 40s at times but does not sustain there, HR is mainly in 50s-60s. Pt received x1 dose of Toradol approx 2 hours ago for pain to face/jaw/mouth area and reports that it
helped her. Labs obtained. Pt ambulated to with standby assistance and is now back in bed. Assessment otherwise unchanged.
[2025-08-17 04:41] LABS: Hematocrit 26.4 % (37.0-47.0); Hemoglobin 8.3 g/dL (12.0-16.0); Mean Corp Hgb Conc. 31.4 g/dL (33.0-37.0); Mean Corpuscular Volume 85.4 fL (81.0-99.0); Platelet Count 176 10^3/uL (130-400); Red Cell Dist. Width 14.6 % (11.5-14.5)
[2025-08-17 04:57] LABS: Blood Urea Nitrogen 23 mg/dl (7-17); Calcium 8.4 mg/dl (8.4-10.2); Carbon Dioxide 24 mmol/L (22-30); Chloride 116 mmol/L (98-107); Estimated Creatinine Clearance 56 ml/min; Glucose 98 mg/dl (70-99); Magnesium 2.2 mg/dl (1.6-2.3); Potassium 3.7 mmol/L (3.5-5.1); Sodium 142 mmol/L (135-145); eGFR > 60.00
[2025-08-17] MEDS: SYNTHROID PO (05:01)
[2025-08-17] MEDS: OCEAN, SALINE MIST 2 SPRAYS NASAL (07:04)
--- NOTE | 2025-08-17 07:31 | W.PN.INTV ---
Today's Communication / Plan
Recommendations
- Add hypertonic saline nebulized, along with albuterol twice daily
- Add guaifenesin 200 mg p.o. 4 times daily
- Continue to monitor closely in the ICU
- Continue to monitor vital capacity and NIF testing as able
Assessment
-
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 She follows up with [facility] and currently actively receiving radiation treatment.
Patient reports that over the last few days he has been having increasing weakness and has not been able to walk without assistance. She carries a known diagnosis of myasthenia gravis and chronically is on Mestinon. In view of increased weakness
she was started on IVIG and she has received 2 doses as outpatient, last dose was 3 days ago. In addition she was recently started on prednisone but in view of increasing symptoms she presented to the emergency room. In the emergency room she is
hemodynamically stable, protecting airways well. No evidence of drooling, respiratory compromise. Patient has a strong cough. She was evaluated by neurology service and is currently being admitted to the ICU for close monitoring of her
respiratory status. Sniff testing was attempted but patient not able to make a tight seal around the device. Card Boxer consultation was requested for further input.
#1. Myasthenia gravis with worsening weakness
- Patient chronically has been on pyridostigmine and recently started on prednisone in addition to IVIG infusion
- Additional IVIg studio operation engineer 08/16. Continue Prednisone 30 mg PO daily. Neurology service on case. Mestinon held this morning due to thick respiratory secretions with episode of respiratory distress and hypoxia overnight. Await further recommendations
- Patient at risk of respiratory failure. Reviewed ED records, patient declined transfer to tertiary facility like [facility]
- Monitor closely in the ICU, NIF -40 this AM. Vital capacity improving, 0.7 L 08/16 > 1.4 L 08/17
- With prior surgery for oral cancer as well as neck radiation, patient has a high risk airway in the event that an intubation is needed.
- VBG without hypercapnia
- Low threshold to initiate noninvasive positive pressure ventilation. Currently seems to have strong cough and stable from respiratory stand point. No drooling or stridor noted.
#2/ H/o MUKUL
- Patient not using any CPAP or BIPAP since 5 years now, and does not want to use PAP therapy
#3. Large mucous plug with respiratory distress/hypoxia(08/17)
- Patient report excessive oral secretions even at home. Overnight large mucous plug, difficult to expectorate, resulted in respiratory distress and hypoxia. Anesthesia was emergently called however with jaw thirst and aggressive suctioning, plug
could be aspirated followed by clinical improvement
- I discussed with the patient regarding risk of acute surgical airway emergency considering her abnormal anatomy, limited mouth opening and radiation to neck, intubation could potentially be very challenging requiring surgical airway. Patient's
ENT surgeon is at [facility]. I offered to transfer the patient there, she declined. Patient has had tracheostomy in the past. Explained to patient regarding high risk of needing tracheostomy in future if she develops any respiratory
distress and needs invasive ventilation.
- Add hypertonic saline nebulized twice a day along with albuterol to help thin secretions. Add guaifenesin 4 times daily
- Mestinon held per primary team, await further recommendations from neurology service
Other medical diagnoses:
- Hypertension, hyperlipidemia
- Hypothyroidism
- Chronic GERD
- History of squamous cell carcinoma, oral cavity, status post surgery, reconstruction and radiation. Magic mouth wash for oral discomfort
Critical Care time [45] mins -- The patient is admitted for acute critical illness for the treatment of vital organ failure and/or prevention of further life-threatening conditions. Total care includes time spent in review of history, physical exam,
medications, hemodynamic/ventilator parameters, laboratory data, imaging and discussion with house staff, pharmacy, respiratory therapy, contact center engineer, and nursing.
Data:
PET-CT 03/2025: 1. RECURRENT SQUAMOUS CELL CARCINOMA in the MIDLINE ANTERIOR FLOOR of the MOUTH).
2. No evidence for FDG avid metastatic disease.
3. Previous left mandibular resection, mandibular reconstruction, and left-sided neck dissection.
CT Neck 02/2025: 1. No CT evidence for enhancing soft tissue mass to suggest recurrent cancer. Mild edema along the anterior margin of the mandible. Partial left mandibular resection and reconstruction with surrounding soft tissue resection in the
left side of the floor of the mouth and left expediter space since the prior exam performed 07/18/2023.
2. No CT evidence for metastatic cervical lymphadenopathy.
3. Previous total thyroidectomy.
4. 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
5. 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
6. Mild pulmonary arterial hypertension.
Lexiscan 10/2024: Lexiscan nuclear stress test. No chest pain. No EKG changes specific for ischemia.
No perfusion evidence of ischemia or infarction.
Systolic function is normal. The ejection fraction is 56%.
Stress Risk is moderate due to use of pharmacologic agent.
ECHO 10/2024: Normal biventricular size and systolic function without regional wall motion
abnormality. Estimated LVEF 65-70%.
Mild aortic regurgitation.
Subjective Dataa
Subjective Data
Date of Service:
Date of Service: August 17, 2025
Subjective:
Patient comfortably sitting in chair in no acute distress.
Review of Systems
Genitourinary: Other (No new symptoms reported.)
Objective Data
Data Reviewed
Vital Signs / I&O / Oxygen:
Vital Signs
Temp Pulse Resp BP Pulse Ox
97.8 F 45 15 118/50 94
08/16/25 23:33 08/17/25 06:00 08/17/25 06:00 08/17/25 06:00 08/17/25 07:28
Intake and Output
08/16/25 08/17/25 08/18/25
06:59 06:59 06:59
Intake Total
Output Total 60 / 60
Balance /
SaO2 94
Physical Exam
General: Comfortable and Other (Skin erythema, likely related to radiation. Limited mouth opening.)
HEENT: Normocephalic
Cardiovascular: S1-S2
Respiratory: Clear and Non-Labored Respirations
GI: Soft and Non Distended
Neurology: Awake and Alert
Skin: Warm
Labs/Micro/Reports
Lab Data
08/17/25 04:08
08/17/25 04:08
Laboratory Results
08/16/25 08/16/25
15:43 16:56
PT 13.8
INR 1.03
APTT 28.3
pH Cancelled
pCO2 Cancelled
pO2 Cancelled
HCO3 Cancelled
O2 Delivery Level Cancelled
[2025-08-17] MEDS: SODIUM CHLORIDE 3% FOR INHALATION 1 VIAL INH ×2 (07:42→20:39)
[2025-08-17] MEDS: VENTOLIN NEBULES 2.5 MG INH ×2 (07:42→20:39)
--- NOTE | 2025-08-17 07:55 | W.PN.HOSP.TC ---
Addendum entered and electronically signed by Polo Mcclain MD 08/17/25 08:00:
since patient lost weight over past year due to multiple comorbiditied and continued Sx (last in April) - TSH was suppressed and Synthroid already decreased by PCP to 112mcg. Currently remains supressed. Reasonable to defer re-check to 1-2 weeks with
PCP and cont same dose in view f MG crisis
Original Note:
Today's Communication/Plan
-
see PN
Assessment / Plan
Assessment / Plan
79yo F with PMHX of MG, oral CA s/p resecction and jaw reconstruction, thyroid CA s/p resection, iatrogenic hypothyroidism, GERD came with worsening MG crisis, admitted for continued IVIG and monitoring
A/P:
#MG crisis
IVIG, steroids
due to episode of mucus plugging - hold Physostigmine pending neurology eval
BID VC and NIF
Intensivst consult
#Hx of oral CA s/p resection and jaw reconstruction
#DYsphaagia
on puree diet
RAIL CAR MAINTENANCE MECHANIC
#Anemia
#LEukopenia
most likely 22/2 acute disease and CA
follow CBC
no neutropenia
#Hypomagnesemia
replete ed
#Hypothyroidism
since patient lost weight over past
DVT ppx lovenox
Full code
I have spent at least 559min critical care time reviewing chart, test results, communication with consultants and providing direct patient care
Anticipated Discharge: > 48 hours
Subjective/Interval History
-
Date of Service: August 17, 2025
Objective Data
-
Labs:
Laboratory Results
08/17/25
04:08
WBC 2.8 L
Hgb 8.3 L D
Hct 26.4 L
Plt Count 176 D
Sodium 142
Potassium 3.7
Chloride 116 H
Carbon Dioxide 24
BUN 23 H
Creatinine 0.7
Glucose 98
Calcium 8.4
Vital Signs:
Vital Signs
Temp Pulse Resp BP Pulse Ox
97.7 F 52 13 122/62 95
08/17/25 07:38 08/17/25 07:54 08/17/25 07:54 08/17/25 07:03 08/17/25 07:54
I&O
08/16/25 08/17/25 08/18/25
06:59 06:59 06:59
Intake Total
Output Total
Balance
Review of Systems
-
History Source: Patient
All other systems: Reviewed and negative
Physical Exam
-
General: Comfortable and Other (hoarse voice)
HEENT: Normocephalic
Respiratory: Clear to Auscultation
Neuro: Awake, Alert, Oriented and AO x 3
Psych: Calm
--- NOTE | 2025-08-17 08:07 | PTCARENOTE ---
Rec'd care of patient at 0700. Patient sitting at side of bed. C/o SOB. Assisted oob to chair. Patient resting more comfortably. Patient alert and oriented. Garbled speech. Generalized weakness. Speech consult placed. VSS. SB/NSR, 40-60's. Pulse ox
94% on RA. Lung sounds cta. Patient continuing to have difficulty managing secretions. Robitussin ordered. Mestinon placed on hold. +BS. No BM. Voiding in bathroom. Peripheral site capped. Auto Tire Recapper at bedside to discuss plan of care. Patient
tearful. Emotional support provided. Supervisor Plastic Sheets contacted.
[2025-08-17] MEDS: MAGIC OR MIRACLE MOUTHWASH 10 ML PO ×2 (10:11→17:25)
[2025-08-17] MEDS: ROBITUSSIN PO ×3 (10:19→12:20)
[2025-08-17] MEDS: VISBIOME PO (10:22)
--- NOTE | 2025-08-17 10:54 | PTCARENOTE ---
Patient unable to safely swallow. Doughnut Icer notified.
[2025-08-17] MEDS: SOLU-MEDROL PF 24 MG IV (11:25)
--- NOTE | 2025-08-17 12:17 | PTCARENOTE ---
Systems reviewed. No changes from prior assessment. Patient remains oob in chair. VSS. Steroids changed to iv.
--- NOTE | 2025-08-17 13:43 | W.PN.NEURO.1 ---
Today's Communication / Plan
-
The patient appears to be little better than yesterday however the patient thinks that she is about the same as yesterday. The patient was able to walk today without much difficulty with the help of a walker. She appears to be in no apparent
respiratory distress. Mestinon was stopped this morning because she had respiratory distress and hypoxia overnight because of thick respiratory secretions. NIF was -40 this morning and the vital capacity has also improved from 0.7 L on 08/16 to
more than 1.4 L on 08/17.
The plan is to decrease the dose of prednisone from 30 mg daily to 20 mg daily and to restart Mestinon at a lower dose of 30 mg every 8 hours. The patient was able to take Mestinon at home after crushing the tablet and with whipped cream, as per
history and the plan is to decrease the dose of Mestinon to 30 mg every 8 hours and to take it in the crushed form with the whipped cream. If the patient tolerates Mestinon we will continue it and gradually increase the dose. Would like the
patient to take Mestinon while she is sitting up in the chair.
Subjective/Objective
Subjective Data
Date of Service: August 17, 2025
I have seen and examined the patient on 08/17/2025.
The patient is 79 years old female with a past medical history of myasthenia gravis, hypertension, hyperlipidemia, oral cancer status post surgery and now with ongoing radiation therapy, who presented to the hospital with increased weakness. The
patient noted shortness of breath. The patient follows up with neurology for myasthenia gravis and has recently received IVIG treatment about 4 days ago. The patient says that the IVIG treatment helped her somewhat but she is still has been
progressively getting weaker. Is also on Mestinon 60 mg 3 times daily. The patient was also started on prednisone 30 mg by her PCP and she took the first dose before coming to the ER.
On neurologic examination, the patient is alert and oriented x 3, speech is clear, the cranial nerves II to XII are grossly intact, the sensations are grossly intact bilaterally and her motor strength is about 4/5 bilaterally in the upper and lower
extremities. The patient was able to walk without much difficulty with the help of a walker.
The plan is to admit the patient to the hospital in ICU and follow NIF and vital capacity every 6 hours. The plan is to continue with Mestinon and prednisone. IVIG treatment has been ordered for today. At this time the patient is able to maintain
her airway.
The patient appears to be little better than yesterday however the patient thinks that she is about the same as yesterday. The patient was able to walk today without much difficulty with the help of a walker. She appears to be in no apparent
respiratory distress. Mestinon was stopped this morning because she had respiratory distress and hypoxia overnight because of thick respiratory secretions. NIF was -40 this morning and the vital capacity has also improved from 0.7 L on 08/16 to
more than 1.4 L on 08/17.
The plan is to decrease the dose of prednisone from 30 mg daily to 20 mg daily and to restart Mestinon at a lower dose of 30 mg every 8 hours. The patient was able to take Mestinon at home after crushing the tablet and with whipped cream, as per
history and the plan is to decrease the dose of Mestinon to 30 mg every 8 hours and to take it in the crushed form with the whipped cream. If the patient tolerates Mestinon we will continue it and gradually increase the dose. Would like the
patient to take Mestinon while she is sitting up in the chair.
Discussed with the patient's nurse. I have discussed the patient's assessment and the management plan with the patient, patient's daughter and patient's son, and they verbalized understanding of our discussion.
Will follow.
Objective Data
Vital Signs
Temp Pulse Resp BP Pulse Ox
36.5 C 63 24 142/77 95
08/17/25 12:28 08/17/25 13:11 08/17/25 13:11 08/17/25 13:11 08/17/25 13:11
Lab Results
08/17/25 04:08
08/17/25 04:08
PT 13.8 Sec (11.4-14.6) 08/16/25 16:56
INR 1.03 08/16/25 16:56
APTT 28.3 Sec (23.4-35.0) 08/16/25 16:56
Sodium 142 mmol/L (135-145) 08/17/25 04:08
Potassium 3.7 mmol/L (3.5-5.1) 08/17/25 04:08
BUN 23 mg/dl (7-17) H 08/17/25 04:08
Glucose 98 mg/dl (70-99) 08/17/25 04:08
Calcium 8.4 mg/dl (8.4-10.2) 08/17/25 04:08
Phosphorus 3.5 mg/dl (2.5-4.5) 08/16/25 16:56
Patient Allergies
levofloxacin (From Levaquin) Allergy (Verified 08/16/25 11:38)
vaginal infection
succinylcholine Allergy (Verified 08/16/25 11:38)
Unknown
Vital Signs and Labs
-
Vital Signs and Labs:
Vital Signs
Temp Pulse Resp BP Pulse Ox
36.5 C 63 24 142/77 95
08/17/25 12:28 08/17/25 13:11 08/17/25 13:11 08/17/25 13:11 08/17/25 13:11
Lab Results
08/17/25 04:08
08/17/25 04:08
PT 13.8 Sec (11.4-14.6) 08/16/25 16:56
INR 1.03 08/16/25 16:56
APTT 28.3 Sec (23.4-35.0) 08/16/25 16:56
Sodium 142 mmol/L (135-145) 08/17/25 04:08
Potassium 3.7 mmol/L (3.5-5.1) 08/17/25 04:08
BUN 23 mg/dl (7-17) H 08/17/25 04:08
Glucose 98 mg/dl (70-99) 08/17/25 04:08
Calcium 8.4 mg/dl (8.4-10.2) 08/17/25 04:08
Phosphorus 3.5 mg/dl (2.5-4.5) 08/16/25 16:56
Medications
-
Active Medications
Generic Name Dose Route Start Last Admin
Trade Name Freq PRN Reason Stop Dose Admin
Acetaminophen 650 mg 08/16/25 16:37
Acetaminophen 325 Mg Tablet PO 09/13/25 16:36
Q4HPRN PRN
mild pain/SOLIZ/temp> 100.4F
Albuterol Sulfate 2.5 mg 08/17/25 07:23
Albuterol Nebs 2.5 Mg/3 Ml Ampul INH 08/19/25 23:00
R ONCE PFT PRN
PFT SPIROMETRY PROTOCOL
Protocol
Albuterol Sulfate 2.5 mg 08/17/25 08:00 08/17/25 07:42
Albuterol Nebs 2.5 Mg/3 Ml Ampul INH 2.5 mg
R BID RIYA Administration
Protocol
Bisacodyl 10 mg 08/16/25 16:37
Bisacodyl 10 Mg Rectal Suppository RECTAL 09/13/25 16:36
[id number] PRN
constipation
Enoxaparin Sodium 40 mg 08/16/25 18:00 08/16/25 17:57
Enoxaparin Sodium 40 Mg/0.4 Ml Syringe SC 09/13/25 17:59 40 mg
QPM RIYA Administration
Guaifenesin 200 mg 08/17/25 08:00 08/17/25 12:20
Guaifenesin Oral Solution (200 Mg/10 Ml) Cup PO 08/20/25 07:59 Not Given
QID RIYA
Lactobacillus/Bifidobacterium 1 cap 08/17/25 08:00 08/17/25 10:22
Lactobac/Bifidobac (Visbiome) PO 09/14/25 07:59 Not Given
DAILY RIYA
Levothyroxine Sodium 112 mcg 08/17/25 06:00 08/17/25 05:01
Levothyroxine 112 Mcg Tablet PO 09/14/25 05:59 Not Given
DAILY@0600 RIYA
Methylprednisolone Sodium Succinate 24 mg 08/17/25 11:15 08/17/25 11:25
Methylprednisolone Pf 40 Mg/Ml Vial IV 09/14/25 11:14 24 mg
DAILY RIYA Administration
Multi-Ingredient Mouthwash/Gargle 10 ml 08/16/25 16:58 08/17/25 10:11
Magic (Miracle) Mouthwash 90 Ml Bottle PO 10 ml
Q4HPRN PRN Administration
Oral discomfort
Pantoprazole Sodium 40 mg 08/17/25 08:00 08/17/25 10:22
Pantoprazole 40 Mg Delayed Release Tablet PO 09/14/25 07:59 Not Given
DAILY RIYA
Polyethylene Glycol 17 grams 08/16/25 16:37
Polyethylene Glycol Powder 17 Grams Packet PO 09/13/25 16:36
DAILYPRN PRN
constipation
Pyridostigmine [place] 30 mg 08/17/25 15:00
Pyridostigmine 60 Mg Tablet PO 09/14/25 14:59
TID RIYA
Senna/Docusate Sodium 1 tablet 08/16/25 16:37
Docusate W/Senna (Ericka-Colace) Tablet PO 09/13/25 16:36
BIDPRN PRN
constipation
Sodium Chloride 0 flush 08/16/25 17:00
Sodium Chloride 0.9% (Flush) Syringe IV 09/13/25 16:59
PER PROTOCOL RIYA
Sodium Chloride 2 sprays 08/17/25 03:01 08/17/25 07:04
Sodium Chloride 0.65% Nasal [place] 45 Ml Bottle NASAL 09/14/25 03:00 2 sprays
Q4HPRN PRN Administration
nasal congestion
Sodium Chloride 1 vial 08/17/25 08:00 08/17/25 07:42
Sodium Chloride 3% For Inhalation 4 Ml Vial INH 1 vial
R BID RIYA Administration
Vitamin C/Vitamin E 1 cap 08/16/25 20:00 08/17/25 07:15
Vit C/Vit E/Lutein/Min/[place]-3 (Ocuvite) Capsule PO 09/13/25 19:59 Not Given
BID RIYA
Home Medications
�Medication �Instructions �Recorded
ynzdgceapppe-mxlfzykc-gktcxh 1 tab PO DAILY Supplement 06/23/09
tablet (Centrum Silver tablet)
levothyroxine 112 mcg tablet 112 mcg PO DAILY Thyroid 04/30/25
(Synthroid)
pyridostigmine bromide 60 mg 60 mg PO TID@09,15,21 MG 04/30/25
tablet (Mestinon)
vitamins A,C,C-azkj-jxwzkj 2,148 1 tab PO BID Supplement 04/30/25
mcg-113 mg-45 mg-17.4 mg tablet
(PreserVision AREDS)
Magic Mouthwash 1 dose PO QIDPRN PRN mouth pain 08/16/25
esomeprazole magnesium 20 mg 20 mg PO DAILY Gastrointestinal 08/16/25
capsule,delayed release (Nexium) Issue
immune glob,gamma (IgG) 10 1 ml IV MONTHLY MG 08/16/25
%-gly-IgA over 50 mcg/mL injection
solution (Gammagard Liquid)
lactobacillus combination no.4 3 3,000 mmu cells PO DAILY Supplement 08/16/25
billion cell capsule (Probiotic)
lorazepam 0.5 mg tablet 0.5 mg PO DAILYPRN PRN prior to 08/16/25
radiation
prednisone 10 mg tablet 30 mg PO .TAPER MG 08/16/25
[2025-08-17] MEDS: MESTINON 30 MG PO ×3 (14:40→21:59)
--- NOTE | 2025-08-17 14:46 | PTCARENOTE ---
Patient seen by speech therapist. Patient tolerating thin liquids. Per patient, she takes her medications crushed in whipped cream at home. Whipped cream obtained by family. Mestinon administered as ordered.
--- NOTE | 2025-08-17 16:20 | PTCARENOTE ---
Patient in better spirits. Strength improved. Standby assist provided to ambulate to bathroom. Patient tolerating sipping on clears. No other changes.
--- NOTE | 2025-08-17 17:15 | PTOTSP ---
Speech Therapy Evaluation
Pt seen for swallow assessment. Pt at an increased risk of aspiration given myasthenia gravis dx, oral CA (s/p resection and jaw reconstruction), thyroid CA (s/p resection), iatrogenic hypothyroidism, and GERD.�Previous VSE 07/27/24 revealed swallow
function that was WFL.�Suspect oral dysphagia > pharyngeal dysphagia.
At bedside, pt demo difficulty managing saliva, as evidenced by wet vocal quality and frequent throat clearing. Pt declined PO trials of solids (puree) due to increased difficulty managing consistency during breakfast. With thin liquids, pt utilized
a spray bottle with an extended nozzle to direct liquid towards the back of the oral cavity. Intermittent wet vocal quality and cough noted. Thin liquids via tsp resulted in�spillage of > 50% of liquid from oral cavity. Pt unable to produce labial
rounding and seal. Very poor oral containment as evidenced by anterior spillage. Discussed other means of nutrition as there were overt s/sx of aspiration with PO. Likely unable to do dobhoff due to nasal scarring.
Recommend:
1. Recommended NPO due to continuous wet vocal quality and intermittent coughing, however, pt declined other means of nutrition. Pt prefers liquid only diet. Pt edu on risks for aspiration given wet vocal quality with PO trials.
2. Medication as best tolerated
3. Standard aspiration precautions
4. FAIRING MAN to follow
5. Consider VSE if wet vocal quality persists
[2025-08-17] MEDS: LOVENOX 40 MG SC (18:15)
[2025-08-17] MEDS: ROBITUSSIN 200 MG PO ×2 (18:16→22:00)
--- NOTE | 2025-08-17 19:27 | PTCARENOTE ---
on assessment pt ambulated from bathroom to chair with standby assist, AAOx3, denies pain and SOB at this time, SB on the monitor, RA, clear liquid diet, small bm on the toilet, call chris in reach
[2025-08-18] VITALS (21 sets, daily range): BP systolic 107–155; BP diastolic 48–102; BMI 26.0
--- NOTE | 2025-08-18 | PTCARENOTE ---
pt rotating between bed and chair throughout the night, x1 assist, call chris in reach
[2025-08-18] MEDS: MESTINON 30 MG PO ×6 (02:19→21:51)
[2025-08-18 03:00] LABS: Hematocrit 27.9 % (37.0-47.0); Hemoglobin 8.7 g/dL (12.0-16.0); Mean Corp Hgb Conc. 31.2 g/dL (33.0-37.0); Mean Corpuscular Volume 84.3 fL (81.0-99.0); Nucleated Red Blood Cells % 0 %; Platelet Count 202 10^3/uL (130-400); Red Cell Dist. Width 14.6 % (11.5-14.5)
[2025-08-18 03:18] LABS: ALT (SGPT) 18 U/L (0-35); AST (SGOT) 31 U/L (14-36); Albumin 3.3 g/dl (3.5-5.0); Alkaline Phosphatase 64 U/L (38-126); Blood Urea Nitrogen 30 mg/dl (7-17); Calcium 9.1 mg/dl (8.4-10.2); Carbon Dioxide 24 mmol/L (22-30); Chloride 117 mmol/L (98-107); Estimated Creatinine Clearance 49 ml/min; Glucose 100 mg/dl (70-99); Potassium 3.8 mmol/L (3.5-5.1); Sodium 141 mmol/L (135-145); Total Protein 8.4 g/dl (6.3-8.2); eGFR > 60.00
[2025-08-18] MEDS: SYNTHROID 112 MCG PO (05:36)
--- NOTE | 2025-08-18 06:12 | PTCARENOTE ---
pt states having a 'better night tonight', not as much secretions reported by pt, tolerated taking meds crushed in whipped cream, call chris in reach and suction at bedside
[2025-08-18] MEDS: VENTOLIN NEBULES 2.5 MG INH ×2 (07:14→20:19)
[2025-08-18] MEDS: SODIUM CHLORIDE 3% FOR INHALATION 1 VIAL INH ×2 (07:14→20:19)
--- NOTE | 2025-08-18 08:20 | PTCARENOTE ---
Assumed care of pt at 0715 following shift report. Pt sitting OOB in chair. Denies c/o pain or SOB when questioned. Pt's POx 97% on RA. No respiratory distress. Pt on CL diet- taking PO fluids w/ use of squirt type bottle brought from home. Physical
assessment completed as documented. Call dot w/in pt reach. Safe environment maintained. Pt reports she feels 'better' than yesterday.
[2025-08-18] MEDS: SOLU-MEDROL PF 24 MG IV (08:56)
[2025-08-18] MEDS: NSS (PRESERVATIVE FREE) 10 ML IV (08:56)
[2025-08-18] MEDS: PROTONIX IV 40 MG IV (08:56)
[2025-08-18] MEDS: VISBIOME 1 CAP PO (08:56)
--- NOTE | 2025-08-18 09:15 | W.PN.HOSP.TC ---
Today's Communication/Plan
-
completewd IVIG
strength improving
MIP and VC improving
pending further Neurology recomendations
Assessment / Plan
Assessment / Plan
79yo F with PMHX of MG, oral CA s/p resecction and jaw reconstruction, thyroid CA s/p resection, iatrogenic hypothyroidism, GERD came with worsening MG crisis, admitted for continued IVIG and monitoring
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
A/P:
#MG crisis
IVIG, steroids
due to episode of mucus plugging - hold Physostigmine pending neurology eval
BID VC and NIF
Intensivst consult
#Hx of oral CA s/p resection and jaw reconstruction
#DYsphaagia
on puree diet
RETIREMENT PLAN COUNSELOR
#Anemia
#Leukopenia
most likely 22/ acute disease and CA
follow CBC - recommended to have CBC in 2 weeks (together with TSH) checked by PCP, if still leukopenia - discuss with Oncology
no neutropenia
#Hypomagnesemia
replete ed
#Hypothyroidism
since patient lost weight over past
DVT ppx lovenox
Full code
I have spent at least 51min critical care time reviewing chart, test results, communication with consultants and providing direct patient care51
Anticipated Discharge: 24 - 48 hours
Subjective/Interval History
-
Date of Service: August 18, 2025
Objective Data
-
Labs:
Laboratory Results
08/18/25
02:43
WBC 2.6 L
Hgb 8.7 L
Hct 27.9 L
Plt Count 202
Sodium 141
Potassium 3.8
Chloride 117 H
Carbon Dioxide 24
BUN 30 H
Creatinine 0.8
Glucose 100 H
Calcium 9.1
Total Bilirubin 0.3
AST 31
ALT 18
Alkaline Phosphatase 64
Vital Signs:
Vital Signs
Temp Pulse Resp BP Pulse Ox
98 F 54 14 117/63 97
08/18/25 07:20 08/18/25 06:04 08/18/25 06:04 08/18/25 06:04 08/18/25 06:04
I&O
08/17/25 08/18/25 08/19/25
06:59 06:59 06:59
Intake Total /
Output Total 135 / 135
Balance / -135 / -135
Review of Systems
-
All other systems: Reviewed and negative
Constitutional: Reports No Symptoms
Physical Exam
-
General: No Apparent Distress
HEENT: Other (lid lag seen)
Neuro: Awake, Alert, Oriented, AO x 3 and Other (hoarse, 'hot potato' voice)
Psych: Calm
[2025-08-18] MEDS: ROBITUSSIN PO (10:21)
[2025-08-18] MEDS: MAGIC OR MIRACLE MOUTHWASH 10 ML PO ×2 (10:25→18:01)
--- NOTE | 2025-08-18 10:46 | W.PN.NEURO.1 ---
Today's Communication / Plan
-
The plan is to continue with Mestinon 30 mg crushed and mixed with whipped cream every 4 hours. Recommend to keep the patient on prednisone 20 mg daily. The patient will also need Protonix 40 mg daily while she is on prednisone. Will gradually
increase the dose of prednisone as tolerated.
During this admission the patient got IVIG x 1.
She is on prednisone 20 mg daily. She is on Mestinon 30 mg every 4 hours.
The dose of Mestinon was 60 mg every 8 hours at home but the dosing was changed because of risk of aspiration due to increased secretions.
Subjective/Objective
Subjective Data
Date of Service: August 18, 2025
The patient is a 79 years old female with a known history of myasthenia gravis.
The patient was seen and examined today. The patient was sitting in a chair comfortably and was able to converse well without any distress. The patient says that she is better today.
The NIF was -40 this morning and the vital capacity was 1.5 L.
On neurologic examination, the patient is alert and oriented x 3, speech is clear, the cranial nerves II to XII grossly intact and her motor strength is about 4/5 bilaterally.
The plan is to continue with Mestinon 30 mg crushed and mixed with whipped cream every 4 hours. Recommend to keep the patient on prednisone 20 mg daily. The patient will also need Protonix 40 mg daily while she is on prednisone. Will gradually
increase the dose of prednisone as tolerated.
During this admission the patient got IVIG x 1.
She is on prednisone 20 mg daily. She is on Mestinon 30 mg every 4 hours.
The dose of Mestinon was 60 mg every 8 hours at home but the dosing was changed because of risk of aspiration due to increased secretions.
Objective Data
Vital Signs
Temp Pulse Resp BP Pulse Ox
36.6 C 54 14 117/63 97
08/18/25 07:20 08/18/25 06:04 08/18/25 06:04 08/18/25 06:04 08/18/25 06:04
Lab Results
08/18/25 02:43
08/18/25 02:43
PT 13.8 Sec (11.4-14.6) 08/16/25 16:56
INR 1.03 08/16/25 16:56
APTT 28.3 Sec (23.4-35.0) 08/16/25 16:56
Sodium 141 mmol/L (135-145) 08/18/25 02:43
Potassium 3.8 mmol/L (3.5-5.1) 08/18/25 02:43
BUN 30 mg/dl (7-17) H 08/18/25 02:43
Glucose 100 mg/dl (70-99) H 08/18/25 02:43
Calcium 9.1 mg/dl (8.4-10.2) 08/18/25 02:43
Phosphorus 3.5 mg/dl (2.5-4.5) 08/16/25 16:56
Patient Allergies
levofloxacin (From Levaquin) Allergy (Verified 08/16/25 11:38)
vaginal infection
succinylcholine Allergy (Verified 08/16/25 11:38)
Unknown
Vital Signs and Labs
-
Vital Signs and Labs:
Vital Signs
Temp Pulse Resp BP Pulse Ox
36.6 C 80 12 110/98 98
08/18/25 15:55 08/18/25 11:00 08/18/25 10:00 08/18/25 08:00 08/18/25 11:00
Lab Results
08/18/25 02:43
08/18/25 02:43
PT 13.8 Sec (11.4-14.6) 08/16/25 16:56
INR 1.03 08/16/25 16:56
APTT 28.3 Sec (23.4-35.0) 08/16/25 16:56
Sodium 141 mmol/L (135-145) 08/18/25 02:43
Potassium 3.8 mmol/L (3.5-5.1) 08/18/25 02:43
BUN 30 mg/dl (7-17) H 08/18/25 02:43
Glucose 100 mg/dl (70-99) H 08/18/25 02:43
Calcium 9.1 mg/dl (8.4-10.2) 08/18/25 02:43
Phosphorus 3.5 mg/dl (2.5-4.5) 08/16/25 16:56
Medications
-
Active Medications
Generic Name Dose Route Start Last Admin
Trade Name Freq PRN Reason Stop Dose Admin
Acetaminophen 650 mg 08/16/25 16:37 08/18/25 12:13
Acetaminophen 325 Mg Tablet PO 09/13/25 16:36 650 mg
Q4HPRN PRN Administration
mild pain/SOLIZ/temp> 100.4F
Albuterol Sulfate 2.5 mg 08/17/25 07:23
Albuterol Nebs 2.5 Mg/3 Ml Ampul INH 08/19/25 23:00
R ONCE PFT PRN
PFT SPIROMETRY PROTOCOL
Protocol
Albuterol Sulfate 2.5 mg 08/17/25 08:00 08/18/25 07:14
Albuterol Nebs 2.5 Mg/3 Ml Ampul INH 2.5 mg
R BID RIYA Administration
Protocol
Bisacodyl 10 mg 08/16/25 16:37
Bisacodyl 10 Mg Rectal Suppository RECTAL 09/13/25 16:36
[id number] PRN
constipation
Enoxaparin Sodium 40 mg 08/16/25 18:00 08/17/25 18:15
Enoxaparin Sodium 40 Mg/0.4 Ml Syringe SC 09/13/25 17:59 40 mg
QPM RIYA Administration
Lactobacillus/Bifidobacterium 1 cap 08/17/25 08:00 08/18/25 08:56
Lactobac/Bifidobac (Visbiome) PO 09/14/25 07:59 1 cap
DAILY RIYA Administration
Levothyroxine Sodium 112 mcg 08/17/25 06:00 08/18/25 05:36
Levothyroxine 112 Mcg Tablet PO 09/14/25 05:59 112 mcg
DAILY@0600 RIYA Administration
Multi-Ingredient Mouthwash/Gargle 10 ml 08/16/25 16:58 08/18/25 10:25
Magic (Miracle) Mouthwash 90 Ml Bottle PO 10 ml
Q4HPRN PRN Administration
Oral discomfort
Pantoprazole Sodium 40 mg 08/18/25 09:00 08/18/25 08:56
Pantoprazole Sodium 40 Mg/10 Ml Vial IV 09/15/25 08:59 40 mg
DAILY RIYA Administration
Polyethylene Glycol 17 grams 08/16/25 16:37
Polyethylene Glycol Powder 17 Grams Packet PO 09/13/25 16:36
DAILYPRN PRN
constipation
Prednisone 20 mg 08/19/25 08:00
Prednisone 20 Mg Tablet PO 09/16/25 07:59
DAILY RIYA
Pyridostigmine Hospers 30 mg 08/17/25 18:00 08/18/25 14:42
Pyridostigmine 60 Mg Tablet PO 09/14/25 17:59 30 mg
Q4H RIYA Administration
Senna/Docusate Sodium 1 tablet 08/16/25 16:37
Docusate W/Senna (Ericka-Colace) Tablet PO 09/13/25 16:36
BIDPRN PRN
constipation
Sodium Chloride 0 flush 08/16/25 17:00
Sodium Chloride 0.9% (Flush) Syringe IV 09/13/25 16:59
PER PROTOCOL RIYA
Sodium Chloride 2 sprays 08/17/25 03:01 08/17/25 07:04
Sodium Chloride 0.65% Nasal [place] 45 Ml Bottle NASAL 09/14/25 03:00 2 sprays
Q4HPRN PRN Administration
nasal congestion
Sodium Chloride 1 vial 08/17/25 08:00 08/18/25 07:14
Sodium Chloride 3% For Inhalation 4 Ml Vial INH 1 vial
R BID RIYA Administration
Sodium Chloride 10 ml 08/18/25 09:00 08/18/25 08:56
Sodium Chloride 0.9% (Preservative Free) 10 Ml Vial IV 09/15/25 08:59 10 ml
DAILY RIYA Administration
Vitamin C/Vitamin E 1 cap 08/16/25 20:00 08/18/25 08:54
Vit C/Vit E/Lutein/Min/[place]-3 (Ocuvite) Capsule PO 09/13/25 19:59 Not Given
BID RIYA
Home Medications
�Medication �Instructions �Recorded
ggzlbswehmzb-wdyzfsmn-vlqvpo 1 tab PO DAILY Supplement 06/23/09
tablet (Centrum Silver tablet)
levothyroxine 112 mcg tablet 112 mcg PO DAILY Thyroid 04/30/25
(Synthroid)
pyridostigmine bromide 60 mg 60 mg PO TID@09,15,21 MG 04/30/25
tablet (Mestinon)
vitamins A,C,J-oxyz-mrypxt 2,148 1 tab PO BID Supplement 04/30/25
mcg-113 mg-45 mg-17.4 mg tablet
(PreserVision AREDS)
Magic Mouthwash 1 dose PO QIDPRN PRN mouth pain 08/16/25
esomeprazole magnesium 20 mg 20 mg PO DAILY Gastrointestinal 08/16/25
capsule,delayed release (Nexium) Issue
immune glob,gamma (IgG) 10 1 ml IV MONTHLY MG 08/16/25
%-gly-IgA over 50 mcg/mL injection
solution (Gammagard Liquid)
lactobacillus combination no.4 3 3,000 mmu cells PO DAILY Supplement 08/16/25
billion cell capsule (Probiotic)
lorazepam 0.5 mg tablet 0.5 mg PO DAILYPRN PRN prior to 08/16/25
radiation
prednisone 10 mg tablet 30 mg PO .TAPER MG 08/16/25
--- NOTE | 2025-08-18 10:50 | W.PN.INTV ---
Today's Communication / Plan
Recommendations
- Change prednisone to 20 mg daily
- Continue twice daily monitoring of vital capacity and NIF
- PT/OT
- Stable for transfer to IMU, pulmonary team will continue to follow along
Assessment
-
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 She follows up with [facility] and currently actively receiving radiation treatment.
Patient reports that over the last few days he has been having increasing weakness and has not been able to walk without assistance. She carries a known diagnosis of myasthenia gravis and chronically is on Mestinon. In view of increased weakness
she was started on IVIG and she has received 2 doses as outpatient, last dose was 3 days ago. In addition she was recently started on prednisone but in view of increasing symptoms she presented to the emergency room. In the emergency room she is
hemodynamically stable, protecting airways well. No evidence of drooling, respiratory compromise. Patient has a strong cough. She was evaluated by neurology service and is currently being admitted to the ICU for close monitoring of her
respiratory status. Sniff testing was attempted but patient not able to make a tight seal around the device. Accounting Teacher consultation was requested for further input.
#1. Myasthenia gravis with worsening weakness
- Patient chronically has been on pyridostigmine and recently started on prednisone in addition to IVIG infusion
- Additional IVIg given 08/16. Mestinon was briefly held on 08/17 due to excessive respiratory secretions and mucous plug causing respiratory distress briefly. After discussion with neurology, lower dose resumed 30 mg, increased frequency to every
4, patient tolerating it better with decreased secretions.
- Has been on prednisone 30 mg, lowered dose to 20 mg daily now
- Respiratory status continues to improve, NIF -40 this AM. Vital capacity improving, 0.7 L 08/16 > 1.4 L 08/17 > 1.5 L 08/18. Strong cough
- With prior surgery for oral cancer as well as neck radiation, patient has a high risk airway in the event that an intubation is needed.
- VBG without hypercapnia
- Currently seems to have strong cough and stable from respiratory stand point. No drooling or stridor noted.
- Transferred to IMU, pulmonary team will continue to follow along
#2/ H/o MUKUL
- Patient not using any CPAP or BIPAP since 5 years now, and does not want to use PAP therapy
#3. Large mucous plug with respiratory distress/hypoxia(08/17)
- Patient reports excessive oral secretions even at home. 08/17, Overnight large mucous plug, difficult to expectorate, resulted in respiratory distress and hypoxia. Anesthesia was emergently called however with jaw thirst and aggressive
suctioning, plug could be aspirated followed by clinical improvement
- I discussed with the patient regarding risk of acute surgical airway emergency considering her abnormal anatomy, limited mouth opening and radiation to neck, intubation could potentially be very challenging requiring surgical airway. Patient's
ENT surgeon is at [facility]. I offered to transfer the patient there, she declined. Patient has had tracheostomy in the past. Explained to patient regarding high risk of needing tracheostomy in future if she develops any respiratory
distress and needs invasive ventilation.
- Continue twice daily hypertonic saline along with albuterol while in hospital, tolerating well. No further mucous plugs.
- Patient tolerating lower dose and increased frequency of Mestinon better.
Other medical diagnoses:
- Hypertension, hyperlipidemia
- Hypothyroidism
- Chronic GERD
- History of squamous cell carcinoma, oral cavity, status post surgery, reconstruction and radiation. Magic mouth wash for oral discomfort
Critical Care time [42] mins -- The patient is admitted for acute critical illness for the treatment of vital organ failure and/or prevention of further life-threatening conditions. Total care includes time spent in review of history, physical exam,
medications, hemodynamic/ventilator parameters, laboratory data, imaging and discussion with house staff, pharmacy, respiratory therapy, matrix bath operator, and nursing.
Data:
PET-CT 03/2025: 1. RECURRENT SQUAMOUS CELL CARCINOMA in the MIDLINE ANTERIOR FLOOR of the MOUTH).
2. No evidence for FDG avid metastatic disease.
3. Previous left mandibular resection, mandibular reconstruction, and left-sided neck dissection.
CT Neck 02/2025: 1. No CT evidence for enhancing soft tissue mass to suggest recurrent cancer. Mild edema along the anterior margin of the mandible. Partial left mandibular resection and reconstruction with surrounding soft tissue resection in the
left side of the floor of the mouth and left mail superintendent space since the prior exam performed 07/18/2023.
2. No CT evidence for metastatic cervical lymphadenopathy.
3. Previous total thyroidectomy.
4. 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
5. 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
6. Mild pulmonary arterial hypertension.
Lexiscan 10/2024: Lexiscan nuclear stress test. No chest pain. No EKG changes specific for ischemia.
No perfusion evidence of ischemia or infarction.
Systolic function is normal. The ejection fraction is 56%.
Stress Risk is moderate due to use of pharmacologic agent.
ECHO 10/2024: Normal biventricular size and systolic function without regional wall motion
abnormality. Estimated LVEF 65-70%.
Mild aortic regurgitation.
Subjective Dataa
Subjective Data
Date of Service:
Date of Service: August 18, 2025
Subjective:
Continues to improve, able to walk to the bathroom and back. Feels stronger overall
Review of Systems
Genitourinary: Other (All 14 systems reviewed and negative except as stated above in the history of present illness.)
Objective Data
Data Reviewed
Vital Signs / I&O / Oxygen:
Vital Signs
Temp Pulse Resp BP Pulse Ox
98 F 54 14 117/63 97
08/18/25 07:20 08/18/25 06:04 08/18/25 06:04 08/18/25 06:04 08/18/25 06:04
Intake and Output
08/17/25 08/18/25 08/19/25
06:59 06:59 06:59
Intake Total
Output Total 135 / 135
Balance / -135 / -135
SaO2 97
Physical Exam
General: Comfortable and Other (Skin erythema, likely related to radiation. Limited mouth opening.)
HEENT: Normocephalic
Cardiovascular: S1-S2
Respiratory: Clear and Non-Labored Respirations
GI: Soft and Non Distended
Neurology: Awake and Alert
Skin: Warm
Labs/Micro/Reports
Lab Data
08/18/25 02:43
08/18/25 02:43
Microbiology
08/16/25 15:26 Urine Urine Culture - Final
[2025-08-18] MEDS: TYLENOL 650 MG PO (12:13)
--- NOTE | 2025-08-18 12:45 | PTCARENOTE ---
Pt continues to sit OOB in chair. Ambulated to BR w/ supervision for AM hygiene. Reported base and Rt/Lt side neck discomfort following increased activity. Pt admits to feeling anxious, stating 'I don't feel like I'm getting better-this is what was
happening when I came in here'. SBP 150's. Pt unable to report any additional symptoms or changes. Neuro assessment unchanged. Tylenol 650mg give per pt request. Emotional support provided. Repeat SBP 110's. Will continue to monitor.
--- NOTE | 2025-08-18 13:57 | CM ---
CM reviewed chart. Met with pt at bedside. Explained role and discussed anticipated dc plan/options.
IA completed. IMM explained, signed and placed on pts chart.
Pt lives alone @ [facility]. At baseline pt is Iw/RW and I/ADLs.
Pt has worked with [facility] in the past and plans on making arrangements on her own with them at dc.
Owns RW and cane. Family/friend will transport at dc.
PCP- confirmed
Pharm- [facility] on [address] in [place]
[2025-08-18] MEDS: LOVENOX 40 MG SC (18:01)
--- NOTE | 2025-08-18 20:00 | PTCARENOTE ---
Rec'd pt resting in chair, amb w/ walker to bathroom ad ronn, cooperative, SR, bp stable, skin warm/dry, RA, lungs clear, sat 95, has clear oral secretions, + bowel sounds, no bm, abd soft, poor appetite for clear liquids, voids in bathroom
--- NOTE | 2025-08-18 23:50 | PTCARENOTE ---
assisted to bed, no changes
[2025-08-19] VITALS (10 sets, daily range): BP systolic 118–147; BP diastolic 55–82; PULSE 58; BMI 26.3
[2025-08-19] MEDS: MESTINON 30 MG PO ×6 (02:04→21:47)
--- NOTE | 2025-08-19 04:34 | PTCARENOTE ---
sys reviewed, changes noted, less oral secretions
[2025-08-19 05:03] LABS: Hematocrit 26.6 % (37.0-47.0); Hemoglobin 8.5 g/dL (12.0-16.0); Mean Corp Hgb Conc. 32.0 g/dL (33.0-37.0); Mean Corpuscular Volume 84.2 fL (81.0-99.0); Platelet Count 167 10^3/uL (130-400); Red Cell Dist. Width 14.7 % (11.5-14.5)
[2025-08-19 05:19] LABS: ALT (SGPT) 13 U/L (0-35); AST (SGOT) 25 U/L (14-36); Albumin 2.8 g/dl (3.5-5.0); Alkaline Phosphatase 52 U/L (38-126); Blood Urea Nitrogen 31 mg/dl (7-17); Calcium 8.9 mg/dl (8.4-10.2); Carbon Dioxide 27 mmol/L (22-30); Chloride 118 mmol/L (98-107); Estimated Creatinine Clearance 54 ml/min; Glucose 90 mg/dl (70-99); Magnesium 2.0 mg/dl (1.6-2.3); Potassium 3.6 mmol/L (3.5-5.1); Sodium 142 mmol/L (135-145); Total Protein 7.3 g/dl (6.3-8.2); eGFR > 60.00
[2025-08-19] MEDS: SYNTHROID 112 MCG PO (05:58)
[2025-08-19] MEDS: SODIUM CHLORIDE 3% FOR INHALATION 1 VIAL INH ×2 (07:34→20:02)
[2025-08-19] MEDS: VENTOLIN NEBULES 2.5 MG INH ×2 (07:34→20:02)
[2025-08-19] MEDS: NSS (PRESERVATIVE FREE) 10 ML IV (09:12)
[2025-08-19] MEDS: PROTONIX IV 40 MG IV (09:13)
[2025-08-19] MEDS: DELTASONE 20 MG PO (09:15)
[2025-08-19] MEDS: VISBIOME 1 CAP PO (09:15)
--- NOTE | 2025-08-19 09:26 | W.PN.PUL3 ---
Today's Communication / Plan
-
Continue to trend vital capacity + NIF
No evidence of acute hypercapnic respiratory failure on blood gases
Nebulized 3% + nebulized albuterol BID
Continue Mestinon
Continue prednisone with taper
Aspiration precautions
Chest PT as needed
PT/OT
Pulmonary service will continue to follow
Assessment
-
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 She follows up with [facility] and currently actively receiving radiation treatment.
Patient reports that over the last few days he has been having increasing weakness and has not been able to walk without assistance. She carries a known diagnosis of myasthenia gravis and chronically is on Mestinon. In view of increased weakness
she was started on IVIG and she has received 2 doses as outpatient, last dose was 3 days ago. In addition she was recently started on prednisone but in view of increasing symptoms she presented to the emergency room. In the emergency room she is
hemodynamically stable, protecting airways well. No evidence of drooling, respiratory compromise. Patient has a strong cough. She was evaluated by neurology service and is currently being admitted to the ICU for close monitoring of her
respiratory status. Sniff testing was attempted but patient not able to make a tight seal around the device. Curtain Worker consultation was requested for further input.
#1. Myasthenia gravis with worsening weakness
- Patient chronically has been on pyridostigmine and recently started on prednisone in addition to IVIG infusion
- Additional IVIg given 08/16. Mestinon was briefly held on 08/17 due to excessive respiratory secretions and mucous plug causing respiratory distress briefly. After discussion with neurology, lower dose resumed 30 mg, increased frequency to every
4 hr, patient tolerating it better with decreased secretions.
- Has been on prednisone 30 mg, lowered dose to 20 mg daily
- Respiratory status continues to improve, continue trending NIF+ vital capacity
- With prior surgery for oral cancer as well as neck radiation, patient has a high risk airway in the event that an intubation is needed.
- VBG without hypercapnia
- Currently seems to have strong cough and stable from respiratory stand point. No drooling or stridor noted.
#2/ H/o MUKUL
- Patient not using any CPAP or BIPAP since 5 years now, and does not want to use PAP therapy
#3. Large mucous plug with respiratory distress/hypoxia(08/17) - now markedly improved as of 08/19
- Patient reports excessive oral secretions even at home. 08/17, Overnight large mucous plug, difficult to expectorate, resulted in respiratory distress and hypoxia. Anesthesia was emergently called however with jaw thirst and aggressive
suctioning, plug could be aspirated followed by clinical improvement
- Dr. Wise discussed with the patient regarding risk of acute surgical airway emergency considering her abnormal anatomy, limited mouth opening and radiation to neck, intubation could potentially be very challenging requiring surgical airway.
Patient's ENT surgeon is at [facility]. Dr. Wise offered to transfer the patient there, she declined. Patient has had tracheostomy in the past. Explained to patient regarding high risk of needing tracheostomy in future if she develops
any respiratory distress and needs invasive ventilation.
- Continue twice daily hypertonic saline along with albuterol while in hospital, tolerating well. No further mucous plugs.
- Patient tolerating lower dose and increased frequency of Mestinon better.
Other medical diagnoses:
- Hypertension, hyperlipidemia
- Hypothyroidism
- Chronic GERD
- History of squamous cell carcinoma, oral cavity, status post surgery, reconstruction and radiation. Magic mouth wash for oral discomfort
- Transferred to IMU on 08/18, pulmonary team will continue to follow along
Data:
PET-CT 03/2025: 1. RECURRENT SQUAMOUS CELL CARCINOMA in the MIDLINE ANTERIOR FLOOR of the MOUTH).
2. No evidence for FDG avid metastatic disease.
3. Previous left mandibular resection, mandibular reconstruction, and left-sided neck dissection.
CT Neck 02/2025: 1. No CT evidence for enhancing soft tissue mass to suggest recurrent cancer. Mild edema along the anterior margin of the mandible. Partial left mandibular resection and reconstruction with surrounding soft tissue resection in the
left side of the floor of the mouth and left coating machine operator space since the prior exam performed 07/18/2023.
2. No CT evidence for metastatic cervical lymphadenopathy.
3. Previous total thyroidectomy.
4. 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
5. 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
6. Mild pulmonary arterial hypertension.
Lexiscan 10/2024: Lexiscan nuclear stress test. No chest pain. No EKG changes specific for ischemia.
No perfusion evidence of ischemia or infarction.
Systolic function is normal. The ejection fraction is 56%.
Stress Risk is moderate due to use of pharmacologic agent.
ECHO 10/2024: Normal biventricular size and systolic function without regional wall motion
abnormality. Estimated LVEF 65-70%.
Mild aortic regurgitation.
Total time spent today was 58 minutes for this encounter. Time includes reviewing laboratory test/imaging results, reviewing pertinent medical records, obtaining and reviewing medical history, performing an appropriate exam, ordering medications,
tests and procedures. Time also includes documentation of this encounter, coordinating patient care and communicating with other healthcare professionals. Total time does not include separately billed tests performed on this date of service.
Subjective Data
-
Date of Service:
Date of Service: August 19, 2025
Chief Complaint: Pulmonary Follow Up
Subjective:
Patient was seen and evaluated this morning. She feels much better overall compared to the last 1-2 days. Heart rate 77. She currently denies shortness of breath. On room air breathing comfortably.
Review of Systems
General: Other (Negative unless mentioned above)
Objective Data
Data Reviewed
Vital Signs / I&O / Oxygen:
Vital Signs
Temp Pulse Resp BP Pulse Ox
97.7 F 66 14 118/55 96
08/19/25 07:31 08/19/25 07:37 08/19/25 07:37 08/19/25 06:10 08/19/25 06:04
Intake and Output
08/18/25 08/19/25 08/20/25
06:59 06:59 06:59
Intake Total 600 / 600
Output Total 135 / 135
Balance -135 / -135 600 / 600
SaO2 96
Physical Exam
General: Respiratory Distress (negative), Comfortable, Chills (negative) and Sweats (negative)
HEENT: Normocephalic and Anicteric
Cardiovascular: Murmur (ADI, heard best at [facility]) and Peripheral Edema (negative)
Respiratory: Wheeze (negative), Crackles (negative), Rhonchi (negative) and Non-Labored Respirations
GI: Soft, Non Distended, Non Tender and Normal Bowel Sounds
Neurology: AO x 3 and Tremors (negative)
Skin: Warm, Dry, Cyanosis (negative) and Jaundice (negative)
Labs/Micro/Reports
Lab Data
08/19/25 04:40
08/19/25 04:40
Microbiology
08/16/25 15:26 Urine Urine Culture - Final
--- NOTE | 2025-08-19 10:20 | PTOTSP ---
Speech Language Pathology
VIDEOFLUOROSCOPIC SWALLOWING EXAMINATION (VSE) completed. Significant weakness noted, leading to inefficient swallow. However, fair airway protection noted with no aspiration. Supraglottic penetration was noted with thin liquids and puree, but
cleared with a throat clear. Pt with good awareness of deficits with appropriate sensation of pharyngeal residue. Most effective strategy at clearing residue was head turn L and R.
Recommend:
(1) IDDSI Level 4 (Puree) and Thin liquids, with pt choosing more liquid purees, such as soups vs mashed potatoes
(2) Aspiration precautions/strategies: head turn L/R with solids to aid in clearing pharyngeal residue, intermittent throat clear/reswallow during meals, sit upright during meals and for at least 30 minutes post meals
(3) Meds crushed in whipped cream, as per preference
(4) ENVIRONMENTAL SERVICES TECH to continue to follow
--- NOTE | 2025-08-19 10:26 | RESPNOTE ---
Pt refused VC and NIF this am,'it won't be good if I do it now'
--- NOTE | 2025-08-19 10:54 | PTCARENOTE ---
Pt received from nightshift RN. Pt is Ox3 and pleasant with garbled speech. She complains of some mouth pain with eating and states that she would like speech therapy to clear her for more solid foods. Pt currently in VSE. NSR/SB on tele, BP's
stable. Pt on RA with a 97% sat, breathe sounds are clear but pt complains of increased oral secretions. She tells me about the mucus plugging event the other night and how scary it was for her. She takes her pills crushed in dalia whip and she has
squirt bottles that she puts her water in to make it easier to drink. Round, soft ABD. Pt walking around the room without difficulty. Mary JONES has a recent skin graft site. IV sites intact. Call chris within reach, pt makes needs known.
[2025-08-19] MEDS: MAGIC OR MIRACLE MOUTHWASH 10 ML PO ×2 (12:50→19:06)
[2025-08-19] MEDS: IMODIUM LIQUID 4 MG PO ×2 (12:50→18:07)
--- NOTE | 2025-08-19 13:00 | W.PN.NEURO.1 ---
Addendum entered and electronically signed by Nithin Ponce MD 08/19/25 14:22:
Studies reviewed.
I have personally examined the patient. I reviewed and agree with the HEALTH NAVIGATOR's Note.
My addenda:
Awake, alert, interactive. No acute distress.
Speech thick.
Follows 2-step requests w/o difficulty. No tremor.
Extra-ocular movements grossly intact.
Facial movements full and symmetric. Hearing intact to normal conversational volume.
Normal UE movements bilaterally.
Neck: full ROM.
Chest: no dyspnea
Heart: no JVD
Ext: (-) Clubbing, (-) Cyanosis, (-) Edema
IMPRESSIONS/RECOMMENDATIONS:
Abrupt onset of worsening dysphagia and generalized weakness with prior history of myasthenia gravis and recent extensive mouth surgery to treat cancer
Continue pyridostigmine 30 mg every 4 hours
Continue prednisone 20 mg daily
Advance diet as per speech therapy
Would not at this time initiate plasma exchange
D/W patient
All questions answered.
Will continue to follow patient.
Original Note:
Today's Communication / Plan
-
.
Neuro Assessment/Plan
Assessment
JOSELITO CHIANG is a 79 year old F who has presented to the hospital with generalized weakness in setting of MG and recent surgery for mouth cancer followed by radiation. Weakness is likely multifactorial, but now likely is in MG flare.
Plan
-The plan is to continue with Mestinon 30 mg crushed and mixed with whipped cream every 4 hours. Recommend to keep the patient on prednisone 20 mg daily. The patient will also need Protonix 40 mg daily while she is on prednisone. Will gradually
increase the dose of prednisone as tolerated.
-During this admission the patient got IVIG x 1.
-The dose of Mestinon was 60 mg every 8 hours at home but the dosing was changed because of risk of aspiration due to increased secretions.
-Will need to consider starting an alternative therapy for MG as an outpatient instead of IVIG.
Subjective/Objective
Subjective Data
Date of Service: August 19, 2025
No acute events overnight.
Objective Data
Vital Signs
Temp Pulse Resp BP Pulse Ox
97.6 F 61 14 118/55 97
08/19/25 11:47 08/19/25 08:00 08/19/25 07:37 08/19/25 06:10 08/19/25 11:23
Lab Results
08/19/25 04:40
08/19/25 04:40
PT 13.8 Sec (11.4-14.6) 08/16/25 16:56
INR 1.03 08/16/25 16:56
APTT 28.3 Sec (23.4-35.0) 08/16/25 16:56
Sodium 142 mmol/L (135-145) 08/19/25 04:40
Potassium 3.6 mmol/L (3.5-5.1) 08/19/25 04:40
BUN 31 mg/dl (7-17) H 08/19/25 04:40
Glucose 90 mg/dl (70-99) 08/19/25 04:40
Calcium 8.9 mg/dl (8.4-10.2) 08/19/25 04:40
Phosphorus 3.5 mg/dl (2.5-4.5) 08/16/25 16:56
Patient Allergies
levofloxacin (From Levaquin) Allergy (Verified 08/16/25 11:38)
vaginal infection
succinylcholine Allergy (Verified 08/16/25 11:38)
Unknown
Review of Systems
-
History Source: Patient
EENT: Swallowing Difficulty (improving) and Other (no diplopia); Negative Decreased Vision
Respiratory: Cough; Negative Trouble Breathing
Neuro: Speech Problem; Negative Dizzy, Headache, Weakness, Numbness, Ataxia or Tremors
Physical Exam
-
General: Appears Chronically Ill
Eyes: PERRLA; Negative No Ptosis (L eye ptosis)
HEENT: Other (jaw edema)
Respiratory: No Dyspnea
Psych: Unremarkable
Extended Neurological Exam
Mood & Affect: Mood Unremarkable and Affect Unremarkable
Attention Span & Concentration: Awake, Alert and Interactive
Memory: Unremarkable and Able to Recall
Tremor: Hand Tremor Absent and Head Tremor Absent
Involuntary Movement: None
Speech: Quantity Unremarkable, Rate of Production Unremarkable and Dysarthric
Cranial Nerves III, IV, : Extraocular Movement: Extraocular Movement Full in all Directions and Ptosis on Left
Cranial Nerve VII: Facial Symmetry: Other (slight left eye ptosis)
Cranial Nerve VIII: Hearing: Unremarkable Hearing to Normal Conversational Volume
Cranial Nerve XI: Shoulder Shrug: Unremarkable
Cranial Nerve XII: Tongue Protusion: Unable to Assess
Muscle Strength, Overall: Other (neck ext/flex 4/5, shoulder ext 5/5, BAILEY 5/5)
Pronator Drift: No Drift in Upper Extremities and No Drift in Lower Extremities
Coordination: [id number] Testing Unremarkable
Data Reviewed
-
Labs: Report Reviewed
Reviewed with: Physician and Patient
Medications
-
Active Medications
Generic Name Dose Route Start Last Admin
Trade Name Freq PRN Reason Stop Dose Admin
Acetaminophen 650 mg 08/16/25 16:37 08/18/25 12:13
Acetaminophen 325 Mg Tablet PO 09/13/25 16:36 650 mg
Q4HPRN PRN Administration
mild pain/SOLIZ/temp> 100.4F
Albuterol Sulfate 2.5 mg 08/17/25 07:23
Albuterol Nebs 2.5 Mg/3 Ml Ampul INH 08/19/25 23:00
R ONCE PFT PRN
PFT SPIROMETRY PROTOCOL
Protocol
Albuterol Sulfate 2.5 mg 08/17/25 08:00 08/19/25 07:34
Albuterol Nebs 2.5 Mg/3 Ml Ampul INH 2.5 mg
R BID RIYA Administration
Protocol
Bisacodyl 10 mg 08/16/25 16:37
Bisacodyl 10 Mg Rectal Suppository RECTAL 09/13/25 16:36
[id number] PRN
constipation
Enoxaparin Sodium 40 mg 08/16/25 18:00 08/18/25 18:01
Enoxaparin Sodium 40 Mg/0.4 Ml Syringe SC 09/13/25 17:59 40 mg
QPM RIYA Administration
Lactobacillus/Bifidobacterium 1 cap 08/17/25 08:00 08/19/25 09:15
Lactobac/Bifidobac (Visbiome) PO 09/14/25 07:59 1 cap
DAILY RIYA Administration
Levothyroxine Sodium 112 mcg 08/17/25 06:00 08/19/25 05:58
Levothyroxine 112 Mcg Tablet PO 09/14/25 05:59 112 mcg
DAILY@0600 RIYA Administration
Loperamide HCl 4 mg 08/19/25 12:22 08/19/25 12:50
Loperamide Liquid 2 Mg/15 Ml Cup PO 09/16/25 12:21 4 mg
Q3HPRN PRN Administration
Diarrhea
Multi-Ingredient Mouthwash/Gargle 10 ml 08/16/25 16:58 08/19/25 12:50
Magic (Miracle) Mouthwash 90 Ml Bottle PO 10 ml
Q4HPRN PRN Administration
Oral discomfort
Pantoprazole Sodium 40 mg 08/18/25 09:00 08/19/25 09:13
Pantoprazole Sodium 40 Mg/10 Ml Vial IV 09/15/25 08:59 40 mg
DAILY RIYA Administration
Polyethylene Glycol 17 grams 08/16/25 16:37
Polyethylene Glycol Powder 17 Grams Packet PO 09/13/25 16:36
DAILYPRN PRN
constipation
Prednisone 20 mg 08/19/25 08:00 08/19/25 09:15
Prednisone 20 Mg Tablet PO 09/16/25 07:59 20 mg
DAILY RIYA Administration
Pyridostigmine [place] 30 mg 08/17/25 18:00 08/19/25 09:14
Pyridostigmine 60 Mg Tablet PO 09/14/25 17:59 30 mg
Q4H RIYA Administration
Senna/Docusate Sodium 1 tablet 08/16/25 16:37
Docusate W/Senna (Ericka-Colace) Tablet PO 09/13/25 16:36
BIDPRN PRN
constipation
Sodium Chloride 0 flush 08/16/25 17:00
Sodium Chloride 0.9% (Flush) Syringe IV 09/13/25 16:59
PER PROTOCOL RIYA
Sodium Chloride 2 sprays 08/17/25 03:01 08/17/25 07:04
Sodium Chloride 0.65% Nasal [place] 45 Ml Bottle NASAL 09/14/25 03:00 2 sprays
Q4HPRN PRN Administration
nasal congestion
Sodium Chloride 1 vial 08/17/25 08:00 08/19/25 07:34
Sodium Chloride 3% For Inhalation 4 Ml Vial INH 1 vial
R BID RIYA Administration
Sodium Chloride 10 ml 08/18/25 09:00 08/19/25 09:12
Sodium Chloride 0.9% (Preservative Free) 10 Ml Vial IV 09/15/25 08:59 10 ml
DAILY RIYA Administration
Vitamin C/Vitamin E 1 cap 08/16/25 20:00 08/19/25 09:13
Vit C/Vit E/Lutein/Min/Disputanta-3 (Ocuvite) Capsule PO 09/13/25 19:59 Not Given
BID RIYA
Home Medications
�Medication �Instructions �Recorded
ibuvnhjjlxbi-nfgqlxto-jfiqha 1 tab PO DAILY Supplement 06/23/09
tablet (Centrum Silver tablet)
levothyroxine 112 mcg tablet 112 mcg PO DAILY Thyroid 04/30/25
(Synthroid)
pyridostigmine bromide 60 mg 60 mg PO TID@09,15,21 MG 04/30/25
tablet (Mestinon)
vitamins A,C,V-rtpf-ngevpq 2,148 1 tab PO BID Supplement 04/30/25
mcg-113 mg-45 mg-17.4 mg tablet
(PreserVision AREDS)
Magic Mouthwash 1 dose PO QIDPRN PRN mouth pain 08/16/25
esomeprazole magnesium 20 mg 20 mg PO DAILY Gastrointestinal 08/16/25
capsule,delayed release (Nexium) Issue
immune glob,gamma (IgG) 10 1 ml IV MONTHLY MG 08/16/25
%-gly-IgA over 50 mcg/mL injection
solution (Gammagard Liquid)
lactobacillus combination no.4 3 3,000 mmu cells PO DAILY Supplement 08/16/25
billion cell capsule (Probiotic)
lorazepam 0.5 mg tablet 0.5 mg PO DAILYPRN PRN prior to 08/16/25
radiation
prednisone 10 mg tablet 30 mg PO .TAPER MG 08/16/25
--- NOTE | 2025-08-19 13:19 | W.PN.HOSP.TC ---
Today's Communication/Plan
-
Continue Mestinon
Assessment / Plan
Assessment / Plan
Impression :
79yo F with PMHX of MG, oral CA s/p resecction and jaw reconstruction, thyroid CA s/p resection, iatrogenic hypothyroidism, GERD came with worsening MG crisis, admitted for continued IVIG and monitoring
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
Assessment/plan:
Myasthenia gravis crisis
IVIG, steroids
due to episode of mucus plugging - hold Physostigmine pending neurology eval
BID VC and NIF
Appreciate Intensivst consult
Hx of oral CA s/p resection and jaw reconstruction
DYsphaagia
on puree diet
Status post video swallow
Anemia
Leukopenia
most likely 22/2 acute disease and CA
follow CBC - recommended to have CBC in 2 weeks (together with TSH) checked by PCP, if still leukopenia - discuss with Oncology
no neutropenia
Hypomagnesemia
replete ed
Hypothyroidism
since patient lost weight over past
CODE STATUS: Full code
DVT prophylaxis: Lovenox
Diet: Pureed diet
Disposition: Continue Mestinon
Total time spent on today's encounter was 55 minutes which included time spent in counseling the patient/family regarding diagnosis and treatment plan as listed above, goals of care, and symptom management. Case was discussed with nursing staff,
specialists, and care coordinators/case management. All labs and imaging personally reviewed by me. Remainder the time spent in detailed review of previous records, lab data, imaging, and other medical provider documentation.
Anticipated Discharge: Within 24 hours
Subjective/Interval History
-
Date of Service: August 19, 2025
Patient seen and examined at bedside, patient was sitting on the bed, denies any chest pain or shortness of breath.
Objective Data
-
Labs:
Laboratory Results
08/19/25
04:40
WBC 2.4 L*
Hgb 8.5 L
Hct 26.6 L
Plt Count 167
Sodium 142
Potassium 3.6
Chloride 118 H
Carbon Dioxide 27
BUN 31 H
Creatinine 0.7
Glucose 90
Calcium 8.9
Total Bilirubin 0.2
AST 25
ALT 13
Alkaline Phosphatase 52
Vital Signs:
Vital Signs
Temp Pulse Resp BP Pulse Ox
97.6 F 61 14 118/55 97
08/19/25 11:47 08/19/25 08:00 08/19/25 07:37 08/19/25 06:10 08/19/25 11:23
I&O
08/18/25 08/19/25 08/20/25
06:59 06:59 06:59
Intake Total 600 / 600
Output Total 135 / 135
Balance -135 / -135 600 / 600
Physical Exam
-
General: Well Developed and Comfortable
HEENT: Normocephalic, Atraumatic, No Ptosis and Other (Hoarseness of voice)
Respiratory: Rales, Rhonchi and Crackles
Cardiac: Regular Rhythm and S1/S2
Breast: Deferred by me
GI: Soft, Nontender, Nondistended and Normal Bowel Sounds
Genito-urinary: No Costovertebral Tender
Musculoskeletal: No Clubbing, No Cyanosis and No Edema
Skin: Warm
Neuro: Awake, Alert, Oriented, AO x 3 and No Motor Deficits
Psych: Calm
--- NOTE | 2025-08-19 15:05 | CM ---
Video swallow today showed no evidence of aspiration, Neurology following. Discharge POC: Therapy recommendation for acute vs HH. Will await updated eval.
[2025-08-19] MEDS: LOVENOX 40 MG SC (18:09)
--- NOTE | 2025-08-19 19:14 | SUR.PHASEI ---
Rec'd pt sitting on chair, son at bedside, garbled speech, amb in room w/ walker, SR, bp stable, + pulses, skin warm/dry, RA, lungs clear, sat 95, cont w/ oral secretions, magic mouthwash prn for mouth sores, + bowel sounds, had dairrhea on previous
shift, poor appetite, voids in bathroom
--- NOTE | 2025-08-19 23:04 | PTCARENOTE ---
assisted to bed,no changes
[2025-08-20] VITALS (7 sets, daily range): BP systolic 110–157; BP diastolic 57–106; BMI 25.7
[2025-08-20] MEDS: MESTINON 30 MG PO ×3 (01:59→10:15)
[2025-08-20 03:27] LABS: Venous Blood Gas B.E. 5.0 mmol/L (-4 to +4); Venous Blood Gas O2 Sat % 91.5 %
[2025-08-20 03:30] LABS: Hematocrit 28.8 % (37.0-47.0); Hemoglobin 9.1 g/dL (12.0-16.0); Mean Corp Hgb Conc. 31.6 g/dL (33.0-37.0); Mean Corpuscular Volume 87.3 fL (81.0-99.0); Platelet Count 179 10^3/uL (130-400); Red Cell Dist. Width 14.8 % (11.5-14.5)
[2025-08-20 03:52] LABS: Blood Urea Nitrogen 31 mg/dl (7-17); Calcium 9.1 mg/dl (8.4-10.2); Carbon Dioxide 31 mmol/L (22-30); Chloride 117 mmol/L (98-107); Estimated Creatinine Clearance 47 ml/min; Glucose 90 mg/dl (70-99); Magnesium 1.8 mg/dl (1.6-2.3); Potassium 3.6 mmol/L (3.5-5.1); Sodium 141 mmol/L (135-145); eGFR > 60.00
[2025-08-20] MEDS: SYNTHROID 112 MCG PO (06:00)
[2025-08-20] MEDS: VISBIOME PO (07:40)
[2025-08-20] MEDS: VENTOLIN NEBULES 2.5 MG INH (07:46)
[2025-08-20] MEDS: SODIUM CHLORIDE 3% FOR INHALATION 1 VIAL INH (07:46)
[2025-08-20] MEDS: PROTONIX IV 40 MG IV (07:49)
[2025-08-20] MEDS: NSS (PRESERVATIVE FREE) 10 ML IV (07:49)
[2025-08-20] MEDS: DELTASONE 20 MG PO (07:49)
--- NOTE | 2025-08-20 08:02 | PTCARENOTE ---
Pt received from security shift manager RN. Pt is very motivated to go home today. Ox3 with garbled speech. NSR on tele, + pulses, no edema. 97% on RA, pt has lots of oral secretions at baseline. Breath sounds clear throughout. She complained of diarrhea from
the mestinon yesterday requiring the initiation of Lomotil. She has since had one ep of diarrhea overnight. Pt is able to ambulate herself around the room and she's been getting herself to the bathroom without issue.
--- NOTE | 2025-08-20 09:14 | W.PN.PUL3 ---
Today's Communication / Plan
-
Continue to trend vital capacity + NIF
No evidence of acute hypercapnic respiratory failure on serial blood gases
Nebulized 3% + nebulized albuterol BID
Continue Mestinon
Continue prednisone with taper
Aspiration precautions
Chest PT as needed
PT/OT
Patient will be discharged home today. No additional recommendations at this time. Pulmonary service will now sign off. Please reconsult if there are any additional questions/concerns, or if patient's respiratory status deteriorates.
Assessment
-
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 She follows up with [facility] and currently actively receiving radiation treatment.
Patient reports that over the last few days he has been having increasing weakness and has not been able to walk without assistance. She carries a known diagnosis of myasthenia gravis and chronically is on Mestinon. In view of increased weakness
she was started on IVIG and she has received 2 doses as outpatient, last dose was 3 days ago. In addition she was recently started on prednisone but in view of increasing symptoms she presented to the emergency room. In the emergency room she is
hemodynamically stable, protecting airways well. No evidence of drooling, respiratory compromise. Patient has a strong cough. She was evaluated by neurology service and is currently being admitted to the ICU for close monitoring of her
respiratory status. Sniff testing was attempted but patient not able to make a tight seal around the device. Furnace Feeder consultation was requested for further input.
#1. Myasthenia gravis with worsening weakness
- Patient chronically has been on pyridostigmine and recently started on prednisone in addition to IVIG infusion
- Additional IVIg given 08/16. Mestinon was briefly held on 08/17 due to excessive respiratory secretions and mucous plug causing respiratory distress briefly. After discussion with neurology, lower dose resumed 30 mg, increased frequency to every
4 hr, patient tolerating it better with decreased secretions.
- Has been on prednisone 30 mg, lowered dose to 20 mg daily
- Respiratory status continues to improve, continue trending NIF+ vital capacity
- With prior surgery for oral cancer as well as neck radiation, patient has a high risk airway in the event that an intubation is needed.
- VBG without hypercapnia
- Currently seems to have strong cough and stable from respiratory stand point. No drooling or stridor noted.
#2/ H/o MUKUL
- Patient not using any CPAP or BIPAP since 5 years now, and does not want to use PAP therapy
#3. Large mucous plug with respiratory distress/hypoxia(08/17) - markedly improved as of 08/19
- Patient reports excessive oral secretions even at home. 08/17, Overnight large mucous plug, difficult to expectorate, resulted in respiratory distress and hypoxia. Anesthesia was emergently called however with jaw thirst and aggressive
suctioning, plug was aspirated followed by clinical improvement
- Dr. Wise discussed with the patient regarding risk of acute surgical airway emergency considering her abnormal anatomy, limited mouth opening and radiation to neck, intubation could potentially be very challenging requiring surgical airway.
Patient's ENT surgeon is at [facility]. Dr. Wise offered to transfer the patient there, she declined. Patient has had tracheostomy in the past. Explained to patient regarding high risk of needing tracheostomy in future if she develops
any respiratory distress and needs invasive ventilation.
- Continue twice daily hypertonic saline along with albuterol while in hospital, tolerating well. No further mucous plugs.
- Patient tolerating lower dose and increased frequency of Mestinon.
Other medical diagnoses:
- Hypertension, hyperlipidemia
- Hypothyroidism
- Chronic GERD
- History of squamous cell carcinoma, oral cavity, status post surgery, reconstruction and radiation. Magic mouth wash for oral discomfort
- Transferred to IMU on 08/18, pulmonary team will continue to follow along
Patient will be discharged home today. No additional recommendations at this time. Pulmonary service will now sign off. Thank you for allowing us to be involved in the care of this patient. Please reconsult if there are any additional
questions/concerns, or if patient's respiratory status deteriorates.
Data:
PET-CT 03/2025: 1. RECURRENT SQUAMOUS CELL CARCINOMA in the MIDLINE ANTERIOR FLOOR of the MOUTH).
2. No evidence for FDG avid metastatic disease.
3. Previous left mandibular resection, mandibular reconstruction, and left-sided neck dissection.
CT Neck 02/2025: 1. No CT evidence for enhancing soft tissue mass to suggest recurrent cancer. Mild edema along the anterior margin of the mandible. Partial left mandibular resection and reconstruction with surrounding soft tissue resection in the
left side of the floor of the mouth and left fish cleaner machine tender space since the prior exam performed 07/18/2023.
2. No CT evidence for metastatic cervical lymphadenopathy.
3. Previous total thyroidectomy.
4. 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
5. 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
6. Mild pulmonary arterial hypertension.
Lexiscan 10/2024: Lexiscan nuclear stress test. No chest pain. No EKG changes specific for ischemia.
No perfusion evidence of ischemia or infarction.
Systolic function is normal. The ejection fraction is 56%.
Stress Risk is moderate due to use of pharmacologic agent.
ECHO 10/2024: Normal biventricular size and systolic function without regional wall motion
abnormality. Estimated LVEF 65-70%.
Mild aortic regurgitation.
Total time spent today was 37 minutes for this encounter. Time includes reviewing laboratory test/imaging results, reviewing pertinent medical records, obtaining and reviewing medical history, performing an appropriate exam, ordering medications,
tests and procedures. Time also includes documentation of this encounter, coordinating patient care and communicating with other healthcare professionals. Total time does not include separately billed tests performed on this date of service.
Subjective Data
-
Date of Service:
Date of Service: August 20, 2025
Chief Complaint: Pulmonary Follow Up
Subjective:
Patient was seen and evaluated this morning. No acute events reported overnight. Afebrile overnight. She feels well, eager to go home.
Review of Systems
General: Other (Negative unless mentioned above)
Objective Data
Data Reviewed
Vital Signs / I&O / Oxygen:
Vital Signs
Temp Pulse Resp BP Pulse Ox
98.1 F 71 14 144/71 96
08/20/25 10:51 08/20/25 10:26 08/20/25 07:52 08/20/25 10:26 08/20/25 13:50
Intake and Output
08/19/25 08/20/25 08/21/25
06:59 06:59 06:59
Intake Total 600 / 600 50 / 50
Balance 600 / 600 50 / 50
SaO2 96
Physical Exam
General: Respiratory Distress (negative), Comfortable, Chills (negative) and Sweats (negative)
HEENT: Normocephalic and Anicteric
Cardiovascular: Murmur (ADI, heard best at LUSB) and Peripheral Edema (negative)
Respiratory: Clear, Wheeze (negative), Crackles (negative), Rhonchi (negative) and Non-Labored Respirations
GI: Soft, Non Distended, Non Tender and Normal Bowel Sounds
Neurology: AO x 3 and Tremors (negative)
Skin: Warm, Dry, Cyanosis (negative) and Jaundice (negative)
Labs/Micro/Reports
Lab Data
08/20/25 03:20
08/20/25 03:20
--- NOTE | 2025-08-20 11:19 | CM ---
Patient has been medically cleared for discharge to home with Jenny Beltran RN, PT and Speech services. Patient declined OT services. Patient has arranged for transport home.
Jenny Beltran phone #: [phone]
Jenny Beltran Fax #: [phone]
--- NOTE | 2025-08-20 12:55 | PN.CDI ---
CDI
- -
CDI:
Physician Documentation Request
Admit Date: 08/16/25 16:00
Dear Doctor Sherin,
RD notes state ' Patient meets AND and ASPEN guidelines for severe protein calorie malnutrition of chronic disease due to a loss of more than 7.5% BW over the past 3 months and less than 75% of estimated nutrition needs met for over one month.'
Based on the above information and your assessment, which of the following most accurately represents the patient's nutritional status?
Severe Malnutrition
Other (please specify)
[place] Criteria ([facility] Hospitalist 2017)
2 or more criteria must be present for either
non severe or severe malnutrition
Note that the criteria differs related to the
presence of an acute or chronic illness
Acute Illness Chronic Illness
Energy Intake Non Severe: <75% for >7 days Non Severe: <75% for >1 month
Severe: <50% for >5 days Severe: <75% for >1 month
Weight Loss Non Severe: 1-2% over 1 week Non Severe: 5% over 1 month
5% over 1 month 7.5% over 3 months
7.5% over 3 months 10% over 6 months
1 year N/A 20% over 1 year
Severe: >2% over 1 week Severe: >5% over 1 month
>5% over 1 month >7.5% over 3 months
>7.5% over 3 months >10% over 6 months
1 year N/A >20% over 1 year
Body Fat Non Severe: Mild Decrease Non Severe: Mild Loss
Severe: Moderate Decrease Severe: Severe Loss
Muscle Mass Non Severe: Mild Decrease Non Severe: Mild Loss
Severe: Moderate Decrease Severe: Severe Loss
Fluid Accumulation Non Severe: Mild Accumulation Non Severe: Mild Accumulation
Severe: Moderate to severe Severe: Moderate to severe
accumulation accumulation
Reduced Lokie Driver Strength Non Severe: N/A Non Severe: N/A
Severe: Measurably reduced Severe: Measurably reduced
Use of terms such as suspected, likely, concern for, or probable (associated with a specific diagnosis that is being evaluated, monitored, or treated as if it exists) are acceptable and can be coded in the inpatient setting, when documented at the
time of discharge.
Thank you,
Destiny Cottrell RN , BSN
CDI Specialist
tiger text
Please use your independent medical judgment in providing your response.
--- NOTE | 2025-08-20 13:34 | W.PN.HOSP.TC ---
Today's Communication/Plan
-
Continue Mestinon-discharge home today
Assessment / Plan
Assessment / Plan
Impression :
79yo F with PMHX of MG, oral CA s/p resecction and jaw reconstruction, thyroid CA s/p resection, iatrogenic hypothyroidism, GERD came with worsening MG crisis, admitted for continued IVIG and monitoring
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
Assessment/plan:
Myasthenia gravis crisis
IVIG, steroids
due to episode of mucus plugging - hold Physostigmine pending neurology eval
BID VC and NIF
Appreciate Intensivst consult
Hx of oral CA s/p resection and jaw reconstruction
DYsphaagia
on puree diet
Status post video swallow
Anemia
Leukopenia
most likely 22/ acute disease and CA
follow CBC - recommended to have CBC in 2 weeks (together with TSH) checked by PCP, if still leukopenia - discuss with Oncology
no neutropenia
Hypomagnesemia
replete ed
Hypothyroidism
since patient lost weight over past
Severe Malnutrition
CODE STATUS: Full code
DVT prophylaxis: Lovenox
Diet: Pureed diet
Disposition: Continue Mestinon-discharge home today
Total time spent on today's encounter was 55 minutes which included time spent in counseling the patient/family regarding diagnosis and treatment plan as listed above, goals of care, and symptom management. Case was discussed with nursing staff,
specialists, and care coordinators/case management. All labs and imaging personally reviewed by me. Remainder the time spent in detailed review of previous records, lab data, imaging, and other medical provider documentation.
Anticipated Discharge: Today
Subjective/Interval History
-
Date of Service: August 20, 2025
Patient seen and examined at bedside, denies any chest pain or shortness of breath, no abdominal pain, no nausea, no vomiting, no diarrhea or constipation.
Objective Data
-
Labs:
Laboratory Results
08/20/25
03:20
WBC 2.9 L
Hgb 9.1 L
Hct 28.8 L
Plt Count 179
Sodium 141
Potassium 3.6
Chloride 117 H
Carbon Dioxide 31 H
BUN 31 H
Creatinine 0.8
Glucose 90
Calcium 9.1
Vital Signs:
Vital Signs
Temp Pulse Resp BP Pulse Ox
98.1 F 71 14 144/71 95
08/20/25 10:51 08/20/25 10:26 08/20/25 07:52 08/20/25 10:26 08/20/25 03:14
I&O
08/19/25 08/20/25 08/21/25
06:59 06:59 06:59
Intake Total 600 / 600 50 / 50
Balance 600 / 600 50 / 50
Physical Exam
-
General: Well Developed and Comfortable
HEENT: Normocephalic, Atraumatic, No Ptosis and Other (Hoarseness of voice)
Respiratory: Rales, Rhonchi and Crackles
Cardiac: Regular Rhythm and S1/S2
Breast: Deferred by me
GI: Soft, Nontender, Nondistended and Normal Bowel Sounds
Genito-urinary: No Costovertebral Tender
Musculoskeletal: No Clubbing, No Cyanosis and No Edema
Skin: Warm
Neuro: Awake, Alert, Oriented, AO x 3 and No Motor Deficits
Psych: Calm
--- NOTE | 2025-08-20 13:35 | W.DCSUMMARY ---
Discharge Summary
Discharge Data
Date of Admission: 08/16/25
Date of Discharge: 08/20/25
Total time spent discharging patient (in min): 40
-
Pending Results: No
Hospital Course
Hospital course
79yo F with PMHX of MG, oral CA s/p resecction and jaw reconstruction, thyroid CA s/p resection, iatrogenic hypothyroidism, GERD came with worsening MG crisis, admitted for continued IVIG and monitoring
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
She was evaluated by neurology service and admitted to the ICU for close monitoring of her respiratory status. Sniff testing was attempted but patient not able to make a tight seal around the device. Overall symptoms improved and patient
downgraded from ICU, discussed with neurology, will be discharged on steroid 20 mg daily and addition of physostigmine home dose, close follow-up with neurology as outpatient.
During hospitalization patient was treated from the following
Myasthenia gravis crisis
IVIG, steroids
due to episode of mucus plugging - hold Physostigmine pending neurology eval
BID VC and NIF
Appreciate Intensivst consult
Hx of oral CA s/p resection and jaw reconstruction
DYsphaagia
on puree diet
Status post video swallow
Anemia
Leukopenia
most likely 22/2 acute disease and CA
follow CBC - recommended to have CBC in 2 weeks (together with TSH) checked by PCP, if still leukopenia - discuss with Oncology
no neutropenia
Hypomagnesemia
replete ed
Hypothyroidism
since patient lost weight over past
Severe Malnutrition
CODE STATUS: Full code
DVT prophylaxis: Lovenox
Diet: Pureed diet
Disposition:discharge home today
Total time spent on today's encounter was 40 minutes which included time spent in counseling the patient/family regarding diagnosis and treatment plan as listed above, goals of care, and symptom management. Case was discussed with nursing staff,
specialists, and care coordinators/case management. All labs and imaging personally reviewed by me. Remainder the time spent in detailed review of previous records, lab data, imaging, and other medical provider documentation.
Anticipated Discharge: Today
Discharge Plan
-
Patient Disposition: Home with Home Care
Discharge Diagnosis/Procedures: Myasthenia gravis crisis.
Anemia
Leukopenia
Diet: Other diet
Additional Diets: Pur�ed diet
Activity: As tolerated
Other Services: PT and OT
Referrals:
Nithin Ponce MD [Active, Neurology] - in two to four weeks
Rodney Moreno DO [Family Provider, Internal Medicine]
Additional Discharge Medication Instructions: continue prednisone 20 mg daily until seen by neurology.
Prescriptions:
New
prednisone 20 mg Tablet
20 mg PO DAILY 30 Days Qty: 30 0RF
loperamide 2 mg capsule
2 mg PO QID PRN (Reason: loose stool) Qty: 30 0RF
Continued
Centrum Silver 1 EACH tablet
1 tab PO DAILY
PreserVision AREDS 2,148 mcg-113 mg-45 mg-17.4mg Tablet
1 tab PO BID
pyridostigmine bromide [Mestinon] 60 mg Tablet
60 mg PO TID@,15,
levothyroxine [Synthroid] 112 mcg Tablet
112 mcg PO DAILY
lorazepam 0.5 mg tablet
0.5 mg PO DAILYPRN PRN (Reason: prior to radiation)
esomeprazole magnesium [Nexium] 20 mg Capsule,Delayed Release(Dr/Ec)
20 mg PO DAILY
Probiotic 3 billion cell Capsule
3,000 mmu cells PO DAILY
Gammagard Liquid 10 % solution
1 ml IV MONTHLY
Magic Mouthwash
1 dose PO QIDPRN PRN (Reason: mouth pain)
Discontinued
prednisone 10 mg tablet
30 mg PO .TAPER
Rx Instructions:
08/16/25 - started today 30 mg
Discharge Orders:
Discharge Patient (As Directed); Ordered 08/20/25
Ordered By: Corinne Duff
Discharge Date and Time
Print Language: LUXEMBOURGER
== END 2025-08-20 14:12 | disposition home health service (06) | DRG 56 ==
LOC: ICU 16:00
PROVIDERS: Internal Medicine; Internal Medicine Critical Care Medicine; Nurse Practitioner Family; Registered Nurse; ADMITTING PHYSICIAN Hospitalist; ATTENDING PHYSICIAN General Practice; CONSULT PHYSICIAN Internal Medicine; CONSULT PHYSICIAN Psychiatry & Neurology Neurology; EMERGENCY PHYSICIAN Emergency Medicine; FAMILY PHYSICIAN Internal Medicine
DX: G70.01 Myasthenia gravis with (acute) exacerbation (principal); E43 Unspecified severe protein-calorie malnutrition; K21.9 Gastro-esophageal reflux disease without esophagitis; E89.0 Postprocedural hypothyroidism; I10 Essential (primary) hypertension; E78.00 Pure hypercholesterolemia, unspecified; C06.9 Malignant neoplasm of mouth, unspecified; Z68.25 Body mass index [BMI] 25.0-25.9, adult
CPT/HCPCS: 71045; 74230; 80048; 80053; 81003; 81015; 82805; 82962; 83735; 84100; 84439; 84443; 84481; 85025; 85027; 85610; 85730; 87086; 92526; 92610; 92611; 93005; 94640; 96360; 97163; 97166; 97530; 97535; 99285; J1569